=== PATIENT | female | born 1955 | race Caucasian/White ===

== ENCOUNTER 2017-08-09 16:18 | Inpatient (IN) ==
[2017-08-09] MEDS ORDERED: ONDANSETRON 4 MG/2 ML VIAL IV PRN ×2 (17:54→19:43)
[2017-08-09] MEDS ORDERED: MAGNESIUM HYDROXIDE SUSP 30 ML UDCUP PO PRN (17:54)
[2017-08-09] MEDS ORDERED: TEMAZEPAM 15 MG CAPSULE PO PRN (17:54)
[2017-08-09 18:38] LABS: Basophils % 0.5 % (0.0-0.8); Hematocrit 34.8 VOL% (35.7-47.0); Immature Granulocytes % 0.6 %; Immature Granulocytes Absolute 0.05 #; Lymphocytes # 0.7 10*3/uL (1.4-4.0); Lymphocytes % 8.3 % (21.3-54.2); Mean Corpuscular HGB Conc 31.6 GM/DL (32-36); Mean Corpuscular Hemoglobin 29 PG (27-34); Mean Corpuscular Volume 92.3 FL (87-102); Mean Platelet Volume 10.9 FL (9.6-12.0); Monocytes # 0.3 10*3/uL (0.11-0.8); Monocytes % 3.2 % (1.7-12.7); Neutrophils # 7.7 10*3/uL (1.4-7.4); Neutrophils % 87.4 % (38.7-73.9); Platelet Count 213 T/CUMM (130-400); Red Blood Count 3.77 MC/CUMM (3.8-5.5); White Blood Count 8.8 T/CUMM (4-12)
[2017-08-09 18:56] LABS: INR 0.9
[2017-08-09 19:07] LABS: Albumin 3.8 G/DL (3.4-5.0); Bilirubin,Total 0.4 MG/DL (0.2-1.0); Potassium 4.6 MMOL/L (3.5-5.1)
[2017-08-09] MEDS ORDERED: HYDROmorphone 2 MG/1 ML VIAL IV PRN (19:43)
[2017-08-09] MEDS ORDERED: OLANZAPINE 10 MG PO SCH (21:00)
[2017-08-09] MEDS: MORPHINE 2 MG/1 ML SYRINGE IV PRN (21:15)
[2017-08-09] MEDS: LACTATED RINGERS 1,000 ML IV SCH (21:24)
[2017-08-09] MEDS: carBAMazepine 200 MG TABLET PO SCH (21:51)
[2017-08-09] MEDS: SIMVASTATIN 20 MG TABLET PO SCH (22:00)
[2017-08-10] MEDS: MORPHINE 2 MG/1 ML SYRINGE IV PRN (05:49)
[2017-08-10] MEDS ORDERED: ceFAZolin 1,000 MG in SYRINGE 1 EACH IV ONE (06:00)
[2017-08-10] MEDS: LEVOTHYROXINE 25 MCG TABLET PO SCH (07:52)
[2017-08-10] MEDS ORDERED: TRANEXAMIC ACID 1,000 MG/10 ML VIAL IV ONE (08:59)
[2017-08-10] MEDS ORDERED: FUROSEMIDE 80 MG TABLET PO SCH (09:00)
[2017-08-10] MEDS ORDERED: PROMETHAZINE 25 MG/1 ML VIAL IM PRN (09:49)
[2017-08-10] MEDS ORDERED: diphenhydrAMINE CAP 25 MG CAPSULE PO PRN (09:49)
[2017-08-10] MEDS ORDERED: LACTULOSE 20 GM/30 ML UDCUP PO PRN (09:49)
[2017-08-10] MEDS ORDERED: BISACODYL 10 MG SUPP RECTAL PRN (09:49)
[2017-08-10] MEDS ORDERED: MAGNESIUM HYDROXIDE SUSP 30 ML UDCUP PO PRN (09:49)
[2017-08-10 10:08] LABS: Apearance,Urine CLEAR (Clear); Bacteria,Urine Occasional /HPF (Few); Bilirubin,Urine Negative (Negative); Blood, Urine Moderate mg/dL (Negative); Glucose,Urine (UA) Negative (Negative); Ketones,Urine Negative (Negative); Mucus,Urine Occasional /LPF (Occasional); Nitrite,Urine Negative (Negative); Protein,Urine 100 MG/DL; RBC,Urine <1 /HPF (0-4); Urine Color Yellow (Yellow); Urine Specific Gravity 1.006 (1.001-1.035); Urine Urobilinogen < 2.0 EU/DL (0.2-1.0); WBC,Urine <1 /HPF (0-6)
[2017-08-10] MEDS ORDERED: PROPOFOL 200 MG/20 ML VIAL IV ONE (10:27)
[2017-08-10] MEDS ORDERED: MIDAZOLAM 2 MG/2 ML VIAL ONE (10:28)
[2017-08-10] MEDS ORDERED: fentaNYL 100 MCG/2 ML VIAL ONE (10:28)
[2017-08-10] MEDS ORDERED: SEVOFLURANE 1 UNIT/15 MINUTE INH ONE (10:28)
[2017-08-10] MEDS ORDERED: ePHEDrine 50 MG/ML AMP ONE (10:28)
[2017-08-10] MEDS ORDERED: ROCURONIUM 100 MG/10 ML VIAL IV ONE (10:29)
[2017-08-10] MEDS ORDERED: SODIUM CHLORIDE 0.9% 1,000 ML IV ONE (10:29)
[2017-08-10] MEDS ORDERED: NEOSTIGMINE 10 MG/10 ML VIAL ONE (10:29)
[2017-08-10] MEDS ORDERED: ONDANSETRON 4 MG/2 ML VIAL ONE ×2 (10:29)
[2017-08-10] MEDS ORDERED: GLYCOPYRROLATE 0.4 MG/2 ML VIAL ONE (10:29)
[2017-08-10] MEDS ORDERED: ONDANSETRON 4 MG/2 ML VIAL IV PRN (10:30)
[2017-08-10] MEDS ORDERED: HYDROmorphone 2 MG/1 ML VIAL IV PRN (10:30)
[2017-08-10] MEDS: FUROSEMIDE 40 MG TABLET PO SCH (11:12)
[2017-08-10] MEDS: POLYETHYLENE GLYCOL POWDER 17 GM PACK PO SCH (11:12)
[2017-08-10] MEDS: amLODIPine 10 MG TABLET PO SCH (11:12)
[2017-08-10] MEDS: carBAMazepine 200 MG TABLET PO SCH ×4 (11:13→21:03)
[2017-08-10] MEDS: METOPROLOL SUCCINATE XL 50 MG TABLET PO SCH (11:13)
[2017-08-10] MEDS: ceFAZolin 1,000 MG in SYRINGE 1 EACH IV SCH ×2 (13:53→21:04)
[2017-08-10] MEDS: FONDAPARINUX 2.5 MG/0.5 ML SYRINGE SUBCUT SCH (21:03)
[2017-08-10] MEDS: DOCUSATE SODIUM 100 MG CAPSULE PO SCH (21:03)
[2017-08-10] MEDS: SIMVASTATIN 20 MG TABLET PO SCH (21:03)
[2017-08-10] MEDS: LACTATED RINGERS 1,000 ML IV SCH (21:08)
[2017-08-11] MEDS: LEVOTHYROXINE 25 MCG TABLET PO SCH (06:00)
[2017-08-11 07:15] LABS: Basophils % 0.4 % (0.0-0.8); Eosinophils % 0.1 % (0.00-10.9); Hematocrit 27.1 VOL% (35.7-47.0); Immature Granulocytes % 0.5 %; Immature Granulocytes Absolute 0.04 #; Lymphocytes # 0.9 10*3/uL (1.4-4.0); Lymphocytes % 11.7 % (21.3-54.2); Mean Corpuscular Hemoglobin 30 PG (27-34); Mean Corpuscular Volume 95.1 FL (87-102); Mean Platelet Volume 11.1 FL (9.6-12.0); Monocytes % 12.8 % (1.7-12.7); Neutrophils # 5.8 10*3/uL (1.4-7.4); Neutrophils % 74.5 % (38.7-73.9); Red Cell Distribution Width 14.2 % (9.3-17.3); White Blood Count 7.8 T/CUMM (4-12)
[2017-08-11 07:19] LABS: Hemoglobin 8.4 GM/DL (12.0-16.0); Platelet Count 166 T/CUMM (130-400); Red Blood Count 2.85 MC/CUMM (3.8-5.5)
[2017-08-11 07:40] LABS: Calcium 8.2 MG/DL (8.5-10.1); Osmolality,Calculated 313.6 MOS/KG (273-304); Potassium 3.9 MMOL/L (3.5-5.1)
[2017-08-11] MEDS: FUROSEMIDE 40 MG TABLET PO SCH (09:21)
[2017-08-11] MEDS: DOCUSATE SODIUM 100 MG CAPSULE PO SCH ×2 (09:21→21:25)
[2017-08-11] MEDS: carBAMazepine 200 MG TABLET PO SCH ×4 (09:21→21:24)
[2017-08-11] MEDS: METOPROLOL SUCCINATE XL 50 MG TABLET PO SCH (09:21)
[2017-08-11] MEDS: amLODIPine 10 MG TABLET PO SCH (09:21)
[2017-08-11] MEDS: POLYETHYLENE GLYCOL POWDER 17 GM PACK PO SCH (09:27)
[2017-08-11] MEDS: SODIUM CHLORIDE 0.9% 1,000 ML IV SCH ×2 (11:01→21:24)
[2017-08-11] MEDS: TEMAZEPAM 7.5 MG CAPSULE PO PRN (21:24)
[2017-08-11] MEDS: FONDAPARINUX 2.5 MG/0.5 ML SYRINGE SUBCUT SCH (21:24)
[2017-08-11] MEDS: SIMVASTATIN 20 MG TABLET PO SCH (21:25)
[2017-08-12] MEDS: LEVOTHYROXINE 25 MCG TABLET PO SCH (06:07)
[2017-08-12 06:28] LABS: Basophils % 0.4 % (0.0-0.8); Eosinophils % 0.5 % (0.00-10.9); Hematocrit 27.4 VOL% (35.7-47.0); Hemoglobin 8.5 GM/DL (12.0-16.0); Immature Granulocytes % 0.6 %; Immature Granulocytes Absolute 0.05 #; Lymphocytes # 0.9 10*3/uL (1.4-4.0); Lymphocytes % 11.2 % (21.3-54.2); Mean Corpuscular Hemoglobin 29 PG (27-34); Mean Corpuscular Volume 93.5 FL (87-102); Mean Platelet Volume 10.9 FL (9.6-12.0); Monocytes # 0.9 10*3/uL (0.11-0.8); Monocytes % 10.6 % (1.7-12.7); Neutrophils # 6.5 10*3/uL (1.4-7.4); Neutrophils % 76.7 % (38.7-73.9); Platelet Count 165 T/CUMM (130-400); Red Blood Count 2.93 MC/CUMM (3.8-5.5); White Blood Count 8.4 T/CUMM (4-12)
[2017-08-12 06:57] LABS: Calcium 7.7 MG/DL (8.5-10.1); Osmolality,Calculated 315.3 MOS/KG (273-304); Potassium 3.9 MMOL/L (3.5-5.1)
[2017-08-12] MEDS: amLODIPine 10 MG TABLET PO SCH (08:37)
[2017-08-12] MEDS: carBAMazepine 200 MG TABLET PO SCH ×4 (08:37→21:16)
[2017-08-12] MEDS: DOCUSATE SODIUM 100 MG CAPSULE PO SCH ×2 (08:37→21:16)
[2017-08-12] MEDS: MAGNESIUM HYDROXIDE SUSP 30 ML UDCUP PO SCH ×2 (08:37→21:15)
[2017-08-12] MEDS: METOPROLOL SUCCINATE XL 50 MG TABLET PO SCH (08:37)
[2017-08-12] MEDS: POLYETHYLENE GLYCOL POWDER 17 GM PACK PO SCH (08:37)
[2017-08-12] MEDS: cloNIDine 0.1 MG TABLET PO SCH ×2 (15:37→21:15)
[2017-08-12] MEDS: SODIUM CHLORIDE 0.9% 1,000 ML IV SCH (17:09)
[2017-08-12] MEDS: FONDAPARINUX 2.5 MG/0.5 ML SYRINGE SUBCUT SCH (21:15)
[2017-08-12] MEDS: TEMAZEPAM 7.5 MG CAPSULE PO PRN (21:16)
[2017-08-12] MEDS: SIMVASTATIN 20 MG TABLET PO SCH (21:16)
[2017-08-13] MEDS: SODIUM CHLORIDE 0.9% 1,000 ML IV SCH ×4 (02:18→15:38)
[2017-08-13 03:29] LABS: Basophils % 0.2 % (0.0-0.8); Eosinophils % 0.5 % (0.00-10.9); Hematocrit 27.1 VOL% (35.7-47.0); Hemoglobin 8.2 GM/DL (12.0-16.0); Immature Granulocytes % 0.5 %; Immature Granulocytes Absolute 0.04 #; Lymphocytes # 1.2 10*3/uL (1.4-4.0); Lymphocytes % 15.2 % (21.3-54.2); Mean Corpuscular HGB Conc 30.3 GM/DL (32-36); Mean Corpuscular Hemoglobin 30 PG (27-34); Mean Corpuscular Volume 97.5 FL (87-102); Mean Platelet Volume 11.2 FL (9.6-12.0); Monocytes # 0.9 10*3/uL (0.11-0.8); Monocytes % 11.7 % (1.7-12.7); Neutrophils # 5.8 10*3/uL (1.4-7.4); Neutrophils % 71.9 % (38.7-73.9); Platelet Count 167 T/CUMM (130-400); Red Blood Count 2.78 MC/CUMM (3.8-5.5); Red Cell Distribution Width 13.8 % (9.3-17.3); White Blood Count 8.1 T/CUMM (4-12)
[2017-08-13 04:00] LABS: Calcium 7.2 MG/DL (8.5-10.1); Osmolality,Calculated 315.1 MOS/KG (273-304)
[2017-08-13] MEDS: LEVOTHYROXINE 25 MCG TABLET PO SCH (06:29)
[2017-08-13] MEDS: cloNIDine 0.1 MG TABLET PO SCH (09:31)
[2017-08-13] MEDS: POLYETHYLENE GLYCOL POWDER 17 GM PACK PO SCH (09:31)
[2017-08-13] MEDS: DOCUSATE SODIUM 100 MG CAPSULE PO SCH ×2 (09:31→20:34)
[2017-08-13] MEDS: MAGNESIUM HYDROXIDE SUSP 30 ML UDCUP PO SCH ×2 (09:31→20:35)
[2017-08-13] MEDS: METOPROLOL SUCCINATE XL 50 MG TABLET PO SCH (09:31)
[2017-08-13] MEDS: amLODIPine 10 MG TABLET PO SCH (09:31)
[2017-08-13] MEDS: carBAMazepine 200 MG TABLET PO SCH ×4 (09:33→20:34)
[2017-08-13] MEDS: SIMVASTATIN 20 MG TABLET PO SCH (20:34)
[2017-08-13] MEDS: FONDAPARINUX 2.5 MG/0.5 ML SYRINGE SUBCUT SCH (20:35)
[2017-08-14] MEDS: SODIUM CHLORIDE 0.9% 1,000 ML IV SCH (02:33)
[2017-08-14] MEDS: LEVOTHYROXINE 25 MCG TABLET PO SCH (06:02)
[2017-08-14] MEDS: MAGNESIUM HYDROXIDE SUSP 30 ML UDCUP PO SCH ×2 (08:00→21:04)
[2017-08-14] MEDS: carBAMazepine 200 MG TABLET PO SCH ×4 (08:00→21:04)
[2017-08-14] MEDS: METOPROLOL SUCCINATE XL 50 MG TABLET PO SCH (08:00)
[2017-08-14] MEDS: POLYETHYLENE GLYCOL POWDER 17 GM PACK PO SCH (08:00)
[2017-08-14] MEDS: DOCUSATE SODIUM 100 MG CAPSULE PO SCH ×2 (08:00→21:04)
[2017-08-14] MEDS: amLODIPine 10 MG TABLET PO SCH (08:00)
[2017-08-14] MEDS: ENOXAPARIN 30 MG/0.3 ML SYRINGE SUBCUT SCH (21:04)
[2017-08-14] MEDS: SIMVASTATIN 20 MG TABLET PO SCH (21:04)
[2017-08-15 04:53] LABS: Calcium 7.6 MG/DL (8.5-10.1); Osmolality,Calculated 309.6 MOS/KG (273-304); Potassium 4.2 MMOL/L (3.5-5.1)
[2017-08-15] MEDS: LEVOTHYROXINE 25 MCG TABLET PO SCH (06:03)
[2017-08-15] MEDS: carBAMazepine 200 MG TABLET PO SCH ×4 (09:27→20:12)
[2017-08-15] MEDS: POLYETHYLENE GLYCOL POWDER 17 GM PACK PO SCH (09:27)
[2017-08-15] MEDS: amLODIPine 10 MG TABLET PO SCH (09:27)
[2017-08-15] MEDS: METOPROLOL SUCCINATE XL 50 MG TABLET PO SCH (09:28)
[2017-08-15] MEDS: DOCUSATE SODIUM 100 MG CAPSULE PO SCH ×2 (09:28→20:10)
[2017-08-15] MEDS: MAGNESIUM HYDROXIDE SUSP 30 ML UDCUP PO SCH ×2 (09:29→20:10)
[2017-08-15] MEDS: ENOXAPARIN 30 MG/0.3 ML SYRINGE SUBCUT SCH (20:11)
[2017-08-15] MEDS: SIMVASTATIN 20 MG TABLET PO SCH (20:12)
[2017-08-16] MEDS: LEVOTHYROXINE 25 MCG TABLET PO SCH (06:46)
[2017-08-16] MEDS: MAGNESIUM HYDROXIDE SUSP 30 ML UDCUP PO SCH ×2 (09:34→21:39)
[2017-08-16] MEDS: METOPROLOL SUCCINATE XL 50 MG TABLET PO SCH (09:35)
[2017-08-16] MEDS: carBAMazepine 200 MG TABLET PO SCH ×4 (09:35→21:38)
[2017-08-16] MEDS: POLYETHYLENE GLYCOL POWDER 17 GM PACK PO SCH (09:35)
[2017-08-16] MEDS: amLODIPine 10 MG TABLET PO SCH (09:35)
[2017-08-16] MEDS: DOCUSATE SODIUM 100 MG CAPSULE PO SCH ×2 (09:35→21:38)
[2017-08-16] MEDS ORDERED: guaiFENesin 200 MG/10 ML UDCUP PO PRN (10:10)
[2017-08-16] MEDS ORDERED: BENZONATATE 100 MG CAPSULE PO PRN (12:09)
[2017-08-16] MEDS: ENOXAPARIN 30 MG/0.3 ML SYRINGE SUBCUT SCH (21:38)
[2017-08-16] MEDS: SIMVASTATIN 20 MG TABLET PO SCH (21:38)
[2017-08-17] MEDS: LEVOTHYROXINE 25 MCG TABLET PO SCH (06:20)
[2017-08-17] MEDS: POLYETHYLENE GLYCOL POWDER 17 GM PACK PO SCH (09:02)
[2017-08-17] MEDS: MAGNESIUM HYDROXIDE SUSP 30 ML UDCUP PO SCH (09:02)
[2017-08-17] MEDS: DOCUSATE SODIUM 100 MG CAPSULE PO SCH (09:06)
[2017-08-17] MEDS: amLODIPine 10 MG TABLET PO SCH (09:07)
[2017-08-17] MEDS: METOPROLOL SUCCINATE XL 50 MG TABLET PO SCH (09:07)
[2017-08-17] MEDS: carBAMazepine 200 MG TABLET PO SCH (09:07)
[2017-08-17 10:58] VITALS: BP 189/84
[2017-08-17] MEDS ORDERED: hydrALAZINE 25 MG TABLET PO SCH (13:00)
== END 2017-08-17 14:15 | DRG 467 ==
LOC: N.ED 16:18 → N.EDINP 17:54 → N.3E 19:46
PROVIDERS: ADMIT Orthopaedic Surgery; ATTEND Orthopaedic Surgery

== ENCOUNTER 2018-04-29 08:34 | Inpatient (IN) ==
[2018-04-29] MEDS ORDERED: LEVOFLOXACIN INJ 500 MG in PREMIX 1 EACH IV STA (08:47)
[2018-04-29] MEDS ORDERED: SODIUM CHLORIDE 0.9% 500 ML IV STA (08:53)
[2018-04-29 09:26] LABS: Basophils % 0.1 % (0.0-0.8); Hemoglobin 8.1 GM/DL (12.0-16.0); Immature Granulocytes % 1.2 %; Lymphocytes # 0.2 10*3/uL (1.4-4.0); Lymphocytes % 2.5 % (21.3-54.2); Mean Corpuscular Hemoglobin 29 PG (27-34); Mean Corpuscular Volume 96.8 FL (87-102); Mean Platelet Volume 11.8 FL (9.6-12.0); Monocytes # 0.7 10*3/uL (0.11-0.8); Monocytes % 8.5 % (1.7-12.7); Neutrophils # 7.3 10*3/uL (1.4-7.4); Neutrophils % 87.7 % (38.7-73.9); Platelet Count 144 T/CUMM (130-400); Red Blood Count 2.79 MC/CUMM (3.8-5.5); Red Cell Distribution Width 14.4 % (9.3-17.3); White Blood Count 8.3 T/CUMM (4-12)
[2018-04-29 09:29] LABS: Apearance,Urine CLOUDY (Clear); Bilirubin,Urine Negative (Negative); Blood, Urine Moderate mg/dL (Negative); Glucose,Urine (UA) Negative (Negative); Ketones,Urine Negative (Negative); Nitrite,Urine Negative (Negative); Protein,Urine 100 MG/DL; RBC,Urine 17 /HPF (0-4); Urine Color Yellow (Yellow); Urine Specific Gravity 1.005 (1.001-1.035); Urine Urobilinogen < 2.0 EU/DL (0.2-1.0); WBC,Urine 79 /HPF (0-6)
[2018-04-29 09:53] LABS: Band Neutrophils 5 % (0-10); Hypochromasia 1+; Lymphocytes 3 % (20-55); Platelet Estimate Normal; Segmented Neutrophils 83 % (50-85); Total Cells Counted 100
[2018-04-29 10:03] LABS: Albumin 2.4 G/DL (3.4-5.0); Bilirubin,Total 0.4 MG/DL (0.2-1.0); Calcium 7.6 MG/DL (8.5-10.1); Osmolality,Calculated 313.3 MOS/KG (273-304); Potassium 4.2 MMOL/L (3.5-5.1); Total Protein 5.7 G/DL (6.4-8.3)
[2018-04-29 10:04] LABS: Lactic Acid 0.5 MMOL/L (0.4-2.0)
[2018-04-29] MEDS ORDERED: ALBUTEROL/IPRATROPIUM 3 ML NEB RESP TX STA (12:35)
[2018-04-29] MEDS ORDERED: DOCUSATE SODIUM 100 MG CAPSULE PO PRN (12:49)
[2018-04-29] MEDS ORDERED: diphenhydrAMINE CAP 25 MG CAPSULE PO PRN (12:49)
[2018-04-29] MEDS ORDERED: MORPHINE 4 MG/1 ML VIAL IV PRN (12:49)
[2018-04-29] MEDS ORDERED: ONDANSETRON 4 MG/2 ML VIAL IV PRN (12:49)
[2018-04-29] MEDS ORDERED: ALBUTEROL 2.5 MG/3 ML NEB RESP TX PRN (12:55)
[2018-04-29] MEDS ORDERED: VANCOMYCIN INJ 750 MG in SODIUM CHLORIDE 0.9% 250 ML IV SCH (13:00)
[2018-04-29] MEDS ORDERED: SODIUM CHLORIDE 0.9% 1,000 ML IV SCH (13:00)
[2018-04-29] MEDS ORDERED: LEVOFLOXACIN INJ 750 MG in PREMIX 1 EACH IV SCH (13:00)
[2018-04-29] MEDS ORDERED: carBAMazepine 200 MG TABLET PO SCH (13:00)
[2018-04-29] MEDS: RACEPINEPHRINE 0.5 ML NEB RESP TX SCH ×2 (13:07→19:42)
[2018-04-29] MEDS ORDERED: OSELTAMIVIR 30 MG CAPSULE PO SCH (14:00)
[2018-04-29] MEDS ORDERED: SODIUM BICARB INJ 100 MEQ in DEXTROSE 5% 900 ML IV SCH (14:00)
[2018-04-29 14:20] LABS: Hepatitis A Ab IgM Quant 0.18 Index; Hepatitis A Ab IgM Result Negative (Negative); Hepatitis B Core IgM Quant 0.05 Index; Hepatitis B Core IgM Result Negative (Negative); Hepatitis B Surface Ag Quant < 0.10 Index; Hepatitis B Surface Ag Result Negative (Negative); Hepatitis C Virus Ab Quant 0.09 Index; Hepatitis C Virus Ab Result Negative (Negative)
[2018-04-29] MEDS: PIPERACILLIN/TAZOBACTAM 3,375 MG in SODIUM CHLORIDE 0.9% 100 ML IV SCH (15:00)
[2018-04-29] MEDS: TIMOLOL 0.5% OPH SOLN 5 ML BOTTLE BOTH EYES SCH (15:13)
[2018-04-29] MEDS: PANTOPRAZOLE 40 MG TABLET PO SCH (15:13)
[2018-04-29] MEDS: CARVEDILOL 6.25 MG TABLET PO SCH ×2 (15:14→20:37)
[2018-04-29] MEDS: amLODIPine 5 MG TABLET PO SCH (15:14)
[2018-04-29] MEDS: BENZONATATE 100 MG CAPSULE PO SCH ×2 (15:14→20:37)
[2018-04-29 15:45] LABS: ABG Base Excess -10.2 MMOL/L (-2.5-2.5); ABG HCO3 16.2 MMOL/L (20-26); ABG Oxygen Saturation 98.6 % (95-100); ABG PCO2 30.3 MM HG (35-48); ABG PH 7.308 (7.35-7.45); ABG TCO2 14.4 MMOL/L (23-27)
[2018-04-29] MEDS ORDERED: SODIUM BICARBONATE 50 MEQ/50 ML SYRINGE IV ONE (15:45)
[2018-04-29 20:15] LABS: INR 1.1; PT Patient Result 11.1 SECS; Partial Thromboplastin Time 27.9 SECS (0-40)
[2018-04-29] MEDS: SIMVASTATIN 20 MG TABLET PO SCH (20:37)
[2018-04-29] MEDS: HEPARIN 5,000 UNIT/1 ML VIAL SUBCUT SCH (20:37)
[2018-04-29] MEDS ORDERED: ENOXAPARIN 30 MG/0.3 ML SYRINGE SUBCUT SCH (21:00)
[2018-04-29] MEDS ORDERED: METOPROLOL SUCCINATE XL 50 MG TABLET PO SCH (21:00)
[2018-04-29] MEDS: LATANOPROST 0.005% OPH SOLN 2.5 ML BOTTLE BOTH EYES SCH (21:14)
[2018-04-30] MEDS: RACEPINEPHRINE 0.5 ML NEB RESP TX SCH ×2 (01:17→07:49)
[2018-04-30] MEDS: PIPERACILLIN/TAZOBACTAM 3,375 MG in SODIUM CHLORIDE 0.9% 100 ML IV SCH ×2 (01:45→15:42)
[2018-04-30 03:51] LABS: Basophils % 0.2 % (0.0-0.8); Eosinophils % 0.2 % (0.00-10.9); Hematocrit 23.3 VOL% (35.7-47.0); Hemoglobin 6.8 GM/DL (12.0-16.0); Immature Granulocytes % 2.6 %; Immature Granulocytes Absolute 0.26 #; Lymphocytes # 0.6 10*3/uL (1.4-4.0); Lymphocytes % 6.1 % (21.3-54.2); Mean Corpuscular HGB Conc 29.2 GM/DL (32-36); Mean Corpuscular Hemoglobin 29 PG (27-34); Mean Corpuscular Volume 98.7 FL (87-102); Mean Platelet Volume 11.7 FL (9.6-12.0); Monocytes # 1.2 10*3/uL (0.11-0.8); Neutrophils % 78.9 % (38.7-73.9); Platelet Count 145 T/CUMM (130-400); Red Blood Count 2.36 MC/CUMM (3.8-5.5); Red Cell Distribution Width 14.6 % (9.3-17.3); White Blood Count 10.2 T/CUMM (4-12)
[2018-04-30 04:43] LABS: Alanine Aminotransferase < 9 U/L (13-56); Alkaline Phosphatase 67 U/L (45-117); Aspartate Amino Transferase 8 U/L (0-37); Blood Urea Nitrogen 102 MG/DL (7-18); Calcium 7.7 MG/DL (8.5-10.1); Cholesterol 110 MG/DL (50-200); Glucose 108 MG/DL (74-106); HDL Cholesterol 21 MG/DL (40-60); Potassium 4.4 MMOL/L (3.5-5.1); Risk Ratio 5.24; Sodium 143 MMOL/L (136-145); Total Protein 4.9 G/DL (6.4-8.3); Triglycerides 143 MG/DL (2-150); VLDL CHOLESTEROL 28.6 MG/DL
[2018-04-30] MEDS ORDERED: SODIUM CHLORIDE 0.9% 1,000 ML IV PRN (05:30)
[2018-04-30 06:01] LABS: Hematocrit 24.7 VOL% (35.7-47.0); Hemoglobin 7.3 GM/DL (12.0-16.0)
[2018-04-30] MEDS: LEVOTHYROXINE 25 MCG TABLET PO SCH (06:18)
[2018-04-30] MEDS: PANTOPRAZOLE 40 MG TABLET PO SCH (10:38)
[2018-04-30] MEDS: amLODIPine 5 MG TABLET PO SCH ×2 (10:38→20:48)
[2018-04-30] MEDS: CARVEDILOL 6.25 MG TABLET PO SCH ×2 (10:38→20:47)
[2018-04-30] MEDS: HEPARIN 5,000 UNIT/1 ML VIAL SUBCUT SCH ×2 (10:38→20:48)
[2018-04-30] MEDS: TIMOLOL 0.5% OPH SOLN 5 ML BOTTLE BOTH EYES SCH (10:39)
[2018-04-30] MEDS: BENZONATATE 100 MG CAPSULE PO SCH ×3 (10:39→20:48)
[2018-04-30] MEDS: ALBUTEROL/IPRATROPIUM 3 ML NEB RESP TX SCH ×4 (11:20→23:54)
[2018-04-30] MEDS ORDERED: SODIUM BICARBONATE 50 MEQ/50 ML SYRINGE IV ONE (11:51)
[2018-04-30] MEDS ORDERED: GLUCAGON 1 MG VIAL IM PRN (14:29)
[2018-04-30] MEDS ORDERED: DEXTROSE 50% 25 GM/50 ML VIAL IV PRN (14:29)
[2018-04-30] MEDS: CITRIC ACID/SODIUM CITRATE 30 ML UDCUP PO SCH ×2 (15:46→20:48)
[2018-04-30] MEDS: INSULIN LISPRO 100 UNIT/ML SUBCUT SCH ×2 (17:32→21:27)
[2018-04-30] MEDS: LATANOPROST 0.005% OPH SOLN 2.5 ML BOTTLE BOTH EYES SCH (20:48)
[2018-04-30] MEDS: SIMVASTATIN 20 MG TABLET PO SCH (20:48)
[2018-05-01] MEDS: PIPERACILLIN/TAZOBACTAM 3,375 MG in SODIUM CHLORIDE 0.9% 100 ML IV SCH ×2 (02:16→14:59)
[2018-05-01] MEDS: ALBUTEROL/IPRATROPIUM 3 ML NEB RESP TX SCH ×6 (03:47→22:55)
[2018-05-01] MEDS: LEVOTHYROXINE 25 MCG TABLET PO SCH (06:09)
[2018-05-01] MEDS: INSULIN LISPRO 100 UNIT/ML SUBCUT SCH ×4 (08:31→21:01)
[2018-05-01] MEDS: CITRIC ACID/SODIUM CITRATE 30 ML UDCUP PO SCH ×3 (09:21→21:00)
[2018-05-01] MEDS: CARVEDILOL 6.25 MG TABLET PO SCH ×2 (09:21→21:01)
[2018-05-01] MEDS: BENZONATATE 100 MG CAPSULE PO SCH ×3 (09:22→21:00)
[2018-05-01] MEDS: HEPARIN 5,000 UNIT/1 ML VIAL SUBCUT SCH ×2 (09:22→21:00)
[2018-05-01] MEDS: amLODIPine 5 MG TABLET PO SCH ×2 (09:22→21:00)
[2018-05-01] MEDS: TIMOLOL 0.5% OPH SOLN 5 ML BOTTLE BOTH EYES SCH (09:22)
[2018-05-01] MEDS: PANTOPRAZOLE 40 MG TABLET PO SCH (09:22)
[2018-05-01] MEDS: LEVOFLOXACIN INJ 250 MG in PREMIX 1 EACH IV SCH (13:57)
[2018-05-01] MEDS: ACETAMINOPHEN 325 MG TABLET PO PRN (15:06)
[2018-05-01] MEDS ORDERED: SODIUM CHLORIDE 0.9% 1,000 ML IV PRN (15:49)
[2018-05-01] MEDS: LATANOPROST 0.005% OPH SOLN 2.5 ML BOTTLE BOTH EYES SCH (21:01)
[2018-05-01] MEDS: SIMVASTATIN 20 MG TABLET PO SCH (21:01)
[2018-05-02] MEDS: ALBUTEROL/IPRATROPIUM 3 ML NEB RESP TX SCH ×5 (03:05→19:00)
[2018-05-02 06:03] LABS: Basophils % 0.3 % (0.0-0.8); Eosinophils # 0.1 10*3/uL (0.0-0.87); Eosinophils % 1.2 % (0.00-10.9); Hematocrit 33.1 VOL% (35.7-47.0); Immature Granulocytes % 4.2 %; Immature Granulocytes Absolute 0.42 #; Lymphocytes # 0.6 10*3/uL (1.4-4.0); Lymphocytes % 6.5 % (21.3-54.2); Mean Corpuscular HGB Conc 31.1 GM/DL (32-36); Mean Corpuscular Hemoglobin 29 PG (27-34); Monocytes # 0.8 10*3/uL (0.11-0.8); Monocytes % 8.1 % (1.7-12.7); Neutrophils # 7.9 10*3/uL (1.4-7.4); Neutrophils % 79.7 % (38.7-73.9); Red Cell Distribution Width 15.2 % (9.3-17.3); White Blood Count 9.9 T/CUMM (4-12)
[2018-05-02] MEDS: LEVOTHYROXINE 25 MCG TABLET PO SCH (06:04)
[2018-05-02 06:05] LABS: Hemoglobin 10.3 GM/DL (12.0-16.0); Red Blood Count 3.52 MC/CUMM (3.8-5.5)
[2018-05-02 06:06] LABS: Platelet Count 185 T/CUMM (130-400)
[2018-05-02 06:21] LABS: Calcium 7.9 MG/DL (8.5-10.1); Potassium 4.5 MMOL/L (3.5-5.1)
[2018-05-02 06:26] LABS: Band Neutrophils 2 % (0-10); Lymphocytes 3 % (20-55); Segmented Neutrophils 91 % (50-85); Total Cells Counted 100
[2018-05-02 06:28] LABS: Microcytosis 1+; Platelet Estimate Adequate
[2018-05-02] MEDS: INSULIN LISPRO 100 UNIT/ML SUBCUT SCH ×4 (07:45→21:09)
[2018-05-02] MEDS: CITRIC ACID/SODIUM CITRATE 30 ML UDCUP PO SCH ×3 (15:23→21:18)
[2018-05-02] MEDS: BENZONATATE 100 MG CAPSULE PO SCH ×3 (15:24→21:10)
[2018-05-02] MEDS: CARVEDILOL 6.25 MG TABLET PO SCH (15:33)
[2018-05-02] MEDS: amLODIPine 5 MG TABLET PO SCH (15:33)
[2018-05-02] MEDS: PRAZOSIN 1 MG CAPSULE PO SCH ×2 (16:00→21:10)
[2018-05-02] MEDS: PANTOPRAZOLE 40 MG TABLET PO SCH (16:00)
[2018-05-02] MEDS: HEPARIN 5,000 UNIT/1 ML VIAL SUBCUT SCH (16:01)
[2018-05-02 16:53] LABS: % Iron Saturation 15.6 % (18-50); Ferritin 225.3 ng/ml (8-252)
[2018-05-02] MEDS ORDERED: METOPROLOL TARTRATE 50 MG TABLET PO SCH (21:00)
[2018-05-02] MEDS: LATANOPROST 0.005% OPH SOLN 2.5 ML BOTTLE BOTH EYES SCH (21:08)
[2018-05-02] MEDS: SIMVASTATIN 20 MG TABLET PO SCH (21:10)
[2018-05-02] MEDS: TIMOLOL 0.5% OPH SOLN 5 ML BOTTLE BOTH EYES SCH (21:15)
[2018-05-03] MEDS: ALBUTEROL/IPRATROPIUM 3 ML NEB RESP TX SCH ×7 (00:40→23:00)
[2018-05-03] MEDS: HEPARIN 5,000 UNIT/1 ML VIAL SUBCUT SCH ×2 (04:32→20:50)
[2018-05-03 06:09] LABS: Basophils # 0.1 10*3/uL (0.0-0.2); Basophils % 0.6 % (0.0-0.8); Eosinophils # 0.1 10*3/uL (0.0-0.87); Eosinophils % 1.3 % (0.00-10.9); Hematocrit 33.7 VOL% (35.7-47.0); Hemoglobin 10.6 GM/DL (12.0-16.0); Immature Granulocytes % 6.5 %; Immature Granulocytes Absolute 0.63 #; Lymphocytes # 1.1 10*3/uL (1.4-4.0); Lymphocytes % 11.5 % (21.3-54.2); Mean Corpuscular HGB Conc 31.5 GM/DL (32-36); Mean Corpuscular Hemoglobin 29 PG (27-34); Mean Corpuscular Volume 92.8 FL (87-102); Mean Platelet Volume 10.7 FL (9.6-12.0); Monocytes # 1.1 10*3/uL (0.11-0.8); Monocytes % 10.8 % (1.7-12.7); Neutrophils # 6.7 10*3/uL (1.4-7.4); Neutrophils % 69.3 % (38.7-73.9); Platelet Count 197 T/CUMM (130-400); Red Blood Count 3.63 MC/CUMM (3.8-5.5); Red Cell Distribution Width 14.6 % (9.3-17.3); White Blood Count 9.7 T/CUMM (4-12)
[2018-05-03] MEDS: LEVOTHYROXINE 25 MCG TABLET PO SCH (06:36)
[2018-05-03 06:38] LABS: Band Neutrophils 2 % (0-10); Hypochromasia 1+; Lymphocytes 11 % (20-55); Myelocytes 1 %; Segmented Neutrophils 76 % (50-85); Total Cells Counted 100
[2018-05-03 06:39] LABS: Microcytosis 1+; Platelet Estimate Adequate
[2018-05-03] MEDS: INSULIN LISPRO 100 UNIT/ML SUBCUT SCH ×4 (07:59→22:20)
[2018-05-03] MEDS: CITRIC ACID/SODIUM CITRATE 30 ML UDCUP PO SCH ×3 (08:37→22:22)
[2018-05-03] MEDS: BENZONATATE 100 MG CAPSULE PO SCH ×3 (08:37→22:21)
[2018-05-03] MEDS: PANTOPRAZOLE 40 MG TABLET PO SCH (08:37)
[2018-05-03] MEDS: LOSARTAN 50 MG TABLET PO SCH (10:01)
[2018-05-03] MEDS: PRAZOSIN 1 MG CAPSULE PO SCH ×2 (10:03→22:21)
[2018-05-03] MEDS: TIMOLOL 0.5% OPH SOLN 5 ML BOTTLE BOTH EYES SCH (10:04)
[2018-05-03] MEDS: LEVOFLOXACIN INJ 250 MG in PREMIX 1 EACH IV SCH (13:30)
[2018-05-03] MEDS: METOPROLOL TARTRATE 50 MG TABLET PO SCH ×2 (13:41→22:22)
[2018-05-03] MEDS: POLYETHYLENE GLYCOL POWDER 17 GM PACK PO SCH (13:42)
[2018-05-03] MEDS ORDERED: HEPARIN 10,000 UNIT/10 ML VIAL IV PRN (17:26)
[2018-05-03] MEDS: SIMVASTATIN 20 MG TABLET PO SCH (22:22)
[2018-05-03] MEDS: LATANOPROST 0.005% OPH SOLN 2.5 ML BOTTLE BOTH EYES SCH (22:22)
[2018-05-04] MEDS: ALBUTEROL/IPRATROPIUM 3 ML NEB RESP TX SCH ×6 (03:00→23:43)
[2018-05-04] MEDS: HEPARIN 5,000 UNIT/1 ML VIAL SUBCUT SCH ×2 (04:20→16:20)
[2018-05-04 06:22] LABS: Basophils # 0.1 10*3/uL (0.0-0.2); Basophils % 0.4 % (0.0-0.8); Eosinophils # 0.1 10*3/uL (0.0-0.87); Eosinophils % 0.5 % (0.00-10.9); Hemoglobin 10.7 GM/DL (12.0-16.0); Immature Granulocytes % 4.3 %; Lymphocytes # 0.8 10*3/uL (1.4-4.0); Lymphocytes % 5.9 % (21.3-54.2); Mean Corpuscular HGB Conc 32.4 GM/DL (32-36); Mean Corpuscular Hemoglobin 30 PG (27-34); Mean Corpuscular Volume 91.4 FL (87-102); Mean Platelet Volume 10.5 FL (9.6-12.0); Monocytes # 1.1 10*3/uL (0.11-0.8); Monocytes % 7.8 % (1.7-12.7); Neutrophils # 11.4 10*3/uL (1.4-7.4); Neutrophils % 81.1 % (38.7-73.9); Platelet Count 195 T/CUMM (130-400); Red Blood Count 3.61 MC/CUMM (3.8-5.5); Red Cell Distribution Width 14.1 % (9.3-17.3); White Blood Count 14.1 T/CUMM (4-12)
[2018-05-04] MEDS ORDERED: ceFAZolin 1,000 MG in SYRINGE 1 EACH IV ONE (06:30)
[2018-05-04 06:46] LABS: Band Neutrophils 3 % (0-10); Eosinophils 1 % (0-10); Hypochromasia 1+; Lymphocytes 7 % (20-55); Microcytosis 1+; Ovalocytes Slight; Platelet Estimate Adequate; Segmented Neutrophils 80 % (50-85); Total Cells Counted 100
[2018-05-04] MEDS: METOPROLOL TARTRATE 50 MG TABLET PO SCH ×2 (07:58→21:51)
[2018-05-04] MEDS: PANTOPRAZOLE 40 MG TABLET PO SCH (07:58)
[2018-05-04] MEDS: INSULIN LISPRO 100 UNIT/ML SUBCUT SCH ×4 (07:58→21:52)
[2018-05-04] MEDS ORDERED: HEPARIN 5,000 UNIT/1 ML VIAL ONE ×2 (08:58→09:35)
[2018-05-04] MEDS ORDERED: BUPIVACAINE 0.25% /EPI 10 ML VIAL ONE (08:58)
[2018-05-04] MEDS ORDERED: LIDOCAINE 1%/EPI INJ 20 ML VIAL ONE (08:58)
[2018-05-04] MEDS ORDERED: PROPOFOL 200 MG/20 ML VIAL IV ONE (10:27)
[2018-05-04] MEDS ORDERED: fentaNYL 100 MCG/2 ML VIAL ONE (10:27)
[2018-05-04] MEDS ORDERED: SODIUM CHLORIDE 0.9% 100 ML IV ONE (10:28)
[2018-05-04] MEDS ORDERED: MIDAZOLAM 2 MG/2 ML VIAL ONE (10:28)
[2018-05-04] MEDS ORDERED: BISACODYL 5 MG TABLET PO ONE (15:23)
[2018-05-04] MEDS: LOSARTAN 50 MG TABLET PO SCH (16:17)
[2018-05-04] MEDS: PRAZOSIN 1 MG CAPSULE PO SCH ×2 (16:18→21:52)
[2018-05-04] MEDS: BENZONATATE 100 MG CAPSULE PO SCH ×3 (16:19→21:51)
[2018-05-04] MEDS: POLYETHYLENE GLYCOL POWDER 17 GM PACK PO SCH (16:20)
[2018-05-04] MEDS: TIMOLOL 0.5% OPH SOLN 5 ML BOTTLE BOTH EYES SCH (16:29)
[2018-05-04] MEDS: CITRIC ACID/SODIUM CITRATE 30 ML UDCUP PO SCH ×2 (16:33→21:53)
[2018-05-04] MEDS: LEVOTHYROXINE 25 MCG TABLET PO SCH (16:33)
[2018-05-04] MEDS: ACETAMINOPHEN 325 MG TABLET PO PRN (19:11)
[2018-05-04] MEDS: SIMVASTATIN 20 MG TABLET PO SCH (21:52)
[2018-05-04] MEDS: LATANOPROST 0.005% OPH SOLN 2.5 ML BOTTLE BOTH EYES SCH (21:53)
[2018-05-05] MEDS: HEPARIN 5,000 UNIT/1 ML VIAL SUBCUT SCH (03:39)
[2018-05-05] MEDS: ALBUTEROL/IPRATROPIUM 3 ML NEB RESP TX SCH ×4 (05:26→14:36)
[2018-05-05] MEDS: LEVOTHYROXINE 25 MCG TABLET PO SCH (06:40)
[2018-05-05] MEDS: INSULIN LISPRO 100 UNIT/ML SUBCUT SCH ×2 (08:53→14:59)
[2018-05-05] MEDS: CITRIC ACID/SODIUM CITRATE 30 ML UDCUP PO SCH ×2 (14:57→15:18)
[2018-05-05] MEDS: LOSARTAN 50 MG TABLET PO SCH (14:57)
[2018-05-05] MEDS: BENZONATATE 100 MG CAPSULE PO SCH ×2 (14:58→15:00)
[2018-05-05] MEDS: POLYETHYLENE GLYCOL POWDER 17 GM PACK PO SCH (14:58)
[2018-05-05] MEDS: PRAZOSIN 1 MG CAPSULE PO SCH (14:58)
[2018-05-05] MEDS: TIMOLOL 0.5% OPH SOLN 5 ML BOTTLE BOTH EYES SCH ×2 (14:59→15:00)
[2018-05-05] MEDS: METOPROLOL TARTRATE 50 MG TABLET PO SCH (15:00)
[2018-05-05] MEDS: PANTOPRAZOLE 40 MG TABLET PO SCH (15:00)
[2018-05-05] MEDS: LEVOFLOXACIN INJ 250 MG in PREMIX 1 EACH IV SCH (15:15)
[2018-05-05 15:31] VITALS: BP 109/82
== END 2018-05-05 16:05 | DRG 683 ==
LOC: EDBD → EDUNIT# → N.ED 08:34 → N.EDINP 12:49 → SUATTDRO 12:49 → N.CC 13:18 → N.3E 04-30 17:28
PROVIDERS: ADMIT Internal Medicine; ATTEND Internal Medicine

== ENCOUNTER 2018-06-02 09:54 | Inpatient (IN) ==
[2018-06-02] MEDS ORDERED: HYDROmorphone 2 MG/1 ML VIAL IV PRN (10:26)
[2018-06-02] MEDS ORDERED: ONDANSETRON 4 MG/2 ML VIAL IV PRN ×2 (10:26→11:49)
[2018-06-02 11:16] LABS: Basophils % 0.5 % (0.0-0.8); Eosinophils # 0.5 10*3/uL (0.0-0.87); Eosinophils % 7.5 % (0.00-10.9); Hematocrit 26.7 VOL% (35.7-47.0); Hemoglobin 8.1 GM/DL (12.0-16.0); Immature Granulocytes % 0.5 %; Immature Granulocytes Absolute 0.03 #; Lymphocytes % 16.3 % (21.3-54.2); Mean Corpuscular HGB Conc 30.3 GM/DL (32-36); Mean Corpuscular Hemoglobin 29 PG (27-34); Mean Corpuscular Volume 94.7 FL (87-102); Monocytes # 0.5 10*3/uL (0.11-0.8); Neutrophils # 4.3 10*3/uL (1.4-7.4); Neutrophils % 67.2 % (38.7-73.9); Platelet Count 171 T/CUMM (130-400); Red Blood Count 2.82 MC/CUMM (3.8-5.5); Red Cell Distribution Width 14.2 % (9.3-17.3); White Blood Count 6.4 T/CUMM (4-12)
[2018-06-02 11:25] LABS: PT Patient Result 10.5 SECS; Partial Thromboplastin Time 26.8 SECS (0-40)
[2018-06-02] MEDS ORDERED: CITRIC ACID/SODIUM CITRATE 30 ML UDCUP PO ONE (11:27)
[2018-06-02 11:40] LABS: Calcium 8.1 MG/DL (8.5-10.1); Osmolality,Calculated 286.5 MOS/KG (273-304); Potassium 5.1 MMOL/L (3.5-5.1)
[2018-06-02] MEDS ORDERED: CITRIC ACID/SODIUM CITRATE 30 ML UDCUP ONE (11:46)
[2018-06-02] MEDS ORDERED: DEXTROSE 50% 25 GM/50 ML VIAL IV PRN (11:49)
[2018-06-02] MEDS ORDERED: MORPHINE 4 MG/1 ML VIAL IV PRN ×2 (11:49→12:11)
[2018-06-02] MEDS ORDERED: MAGNESIUM HYDROXIDE SUSP 30 ML UDCUP PO PRN (11:49)
[2018-06-02] MEDS ORDERED: TEMAZEPAM 15 MG CAPSULE PO PRN (11:49)
[2018-06-02] MEDS ORDERED: GLUCAGON 1 MG VIAL IM PRN (11:49)
[2018-06-02] MEDS ORDERED: ALUMINUM/MAGNES/SIMETH MAX STR 30 ML UDCUP PO PRN (11:49)
[2018-06-02] MEDS ORDERED: SODIUM CHLORIDE 0.9% 1,000 ML IV PRN (15:35)
[2018-06-02] MEDS ORDERED: hydrALAZINE 20 MG/1 ML VIAL IV PRN (15:53)
[2018-06-02] MEDS: carBAMazepine 200 MG TABLET PO SCH ×3 (16:08→21:23)
[2018-06-02] MEDS ORDERED: HEPARIN 10,000 UNIT/10 ML VIAL IV PRN (17:13)
[2018-06-02] MEDS: SIMVASTATIN 20 MG TABLET PO SCH (21:23)
[2018-06-02] MEDS: PRAZOSIN 1 MG CAPSULE PO SCH (21:23)
[2018-06-02] MEDS: OLANZapine 5 MG TABLET PO SCH (21:23)
[2018-06-02] MEDS: METOPROLOL TARTRATE 50 MG TABLET PO SCH (21:24)
[2018-06-02] MEDS: LATANOPROST 0.005% OPH SOLN 2.5 ML BOTTLE BOTH EYES SCH (21:27)
[2018-06-03] MEDS: METOPROLOL TARTRATE 50 MG TABLET PO SCH ×3 (06:16→20:32)
[2018-06-03] MEDS: carBAMazepine 200 MG TABLET PO SCH ×5 (06:16→20:32)
[2018-06-03] MEDS: LEVOTHYROXINE 25 MCG TABLET PO SCH (06:17)
[2018-06-03] MEDS ORDERED: ceFAZolin 1,000 MG in SYRINGE 1 EACH IV ONE (07:00)
[2018-06-03] MEDS ORDERED: VANCOMYCIN INJ 1,000 MG in SODIUM CHLORIDE 0.9% 250 ML IV ONE (07:00)
[2018-06-03] MEDS ORDERED: TRANEXAMIC ACID 1,000 MG/10 ML VIAL ONE (07:57)
[2018-06-03] MEDS ORDERED: LACTULOSE 20 GM/30 ML UDCUP PO PRN (08:58)
[2018-06-03] MEDS ORDERED: BISACODYL 10 MG SUPP RECTAL PRN (08:58)
[2018-06-03] MEDS ORDERED: diphenhydrAMINE CAP 25 MG CAPSULE PO PRN (08:58)
[2018-06-03] MEDS ORDERED: TEMAZEPAM 7.5 MG CAPSULE PO PRN (08:58)
[2018-06-03] MEDS ORDERED: PROMETHAZINE 25 MG/1 ML VIAL IM PRN (08:58)
[2018-06-03] MEDS ORDERED: fentaNYL 100 MCG/2 ML VIAL ONE (09:26)
[2018-06-03] MEDS ORDERED: MIDAZOLAM 2 MG/2 ML VIAL ONE (09:26)
[2018-06-03] MEDS ORDERED: ePHEDrine 50 MG/ML AMP ONE (09:27)
[2018-06-03] MEDS ORDERED: SEVOFLURANE 1 UNIT/15 MINUTE INH ONE (09:28)
[2018-06-03] MEDS ORDERED: ONDANSETRON 4 MG/2 ML VIAL ONE (09:28)
[2018-06-03] MEDS ORDERED: NEOSTIGMINE 10 MG/10 ML VIAL ONE (09:29)
[2018-06-03] MEDS ORDERED: ACETAMINOPHEN 1,000 MG/100 ML VIAL IV ONE (09:29)
[2018-06-03] MEDS ORDERED: ETOMIDATE 40 MG/20 ML VIAL IV ONE (09:29)
[2018-06-03] MEDS ORDERED: GLYCOPYRROLATE 0.4 MG/2 ML VIAL ONE (09:29)
[2018-06-03] MEDS ORDERED: ROCURONIUM 100 MG/10 ML VIAL IV ONE (09:29)
[2018-06-03] MEDS ORDERED: PROPOFOL 200 MG/20 ML VIAL IV ONE (09:30)
[2018-06-03] MEDS ORDERED: PHENYLEPHRINE 1 MG/10 ML SYRINGE IV ONE (09:30)
[2018-06-03] MEDS: MELOXICAM 7.5 MG TABLET PO SCH (14:23)
[2018-06-03] MEDS: DOCUSATE SODIUM 100 MG CAPSULE PO SCH ×2 (14:24→20:32)
[2018-06-03] MEDS: PRAZOSIN 1 MG CAPSULE PO SCH ×2 (14:25→20:32)
[2018-06-03] MEDS: POLYETHYLENE GLYCOL POWDER 17 GM PACK PO SCH (14:26)
[2018-06-03] MEDS: FUROSEMIDE 80 MG TABLET PO SCH (14:26)
[2018-06-03] MEDS: LOSARTAN 50 MG TABLET PO SCH (14:26)
[2018-06-03] MEDS: OLANZapine 5 MG TABLET PO SCH ×2 (14:29→20:32)
[2018-06-03] MEDS: TIMOLOL 0.5% OPH SOLN 5 ML BOTTLE BOTH EYES SCH (14:29)
[2018-06-03] MEDS: ceFAZolin 1,000 MG in SYRINGE 1 EACH IV SCH ×2 (16:07→23:39)
[2018-06-03] MEDS: SIMVASTATIN 20 MG TABLET PO SCH (20:32)
[2018-06-03] MEDS: LATANOPROST 0.005% OPH SOLN 2.5 ML BOTTLE BOTH EYES SCH (20:33)
[2018-06-04 06:04] LABS: Basophils # 0.1 10*3/uL (0.0-0.2); Basophils % 0.6 % (0.0-0.8); Eosinophils # 0.3 10*3/uL (0.0-0.87); Eosinophils % 3.2 % (0.00-10.9); Hematocrit 32.7 VOL% (35.7-47.0); Hemoglobin 10.3 GM/DL (12.0-16.0); Immature Granulocytes % 0.4 %; Immature Granulocytes Absolute 0.04 #; Lymphocytes # 0.8 10*3/uL (1.4-4.0); Lymphocytes % 7.9 % (21.3-54.2); Mean Corpuscular HGB Conc 31.5 GM/DL (32-36); Mean Corpuscular Hemoglobin 30 PG (27-34); Mean Corpuscular Volume 95.3 FL (87-102); Mean Platelet Volume 10.4 FL (9.6-12.0); Monocytes # 1.2 10*3/uL (0.11-0.8); Monocytes % 12.1 % (1.7-12.7); Neutrophils # 7.2 10*3/uL (1.4-7.4); Neutrophils % 75.8 % (38.7-73.9); Platelet Count 192 T/CUMM (130-400); Red Blood Count 3.43 MC/CUMM (3.8-5.5); Red Cell Distribution Width 14.2 % (9.3-17.3); White Blood Count 9.5 T/CUMM (4-12)
[2018-06-04] MEDS: ENOXAPARIN 30 MG/0.3 ML SYRINGE SUBCUT SCH (06:21)
[2018-06-04] MEDS: LEVOTHYROXINE 25 MCG TABLET PO SCH (06:21)
[2018-06-04 06:26] LABS: Calcium 7.6 MG/DL (8.5-10.1); Osmolality,Calculated 278.8 MOS/KG (273-304); Potassium 4.7 MMOL/L (3.5-5.1)
[2018-06-04 06:34] LABS: Calcium 8.1 MG/DL (8.5-10.1); Osmolality,Calculated 280.7 MOS/KG (273-304); Potassium 4.7 MMOL/L (3.5-5.1)
[2018-06-04] MEDS: TIMOLOL 0.5% OPH SOLN 5 ML BOTTLE BOTH EYES SCH (08:18)
[2018-06-04] MEDS ORDERED: ACETAMINOPHEN 325 MG TABLET PO PRN (09:00)
[2018-06-04] MEDS: amLODIPine 2.5 MG TABLET PO SCH ×2 (17:39→20:50)
[2018-06-04] MEDS: METOPROLOL TARTRATE 50 MG TABLET PO SCH ×2 (18:09→20:49)
[2018-06-04] MEDS: DOCUSATE SODIUM 100 MG CAPSULE PO SCH ×2 (18:09→20:50)
[2018-06-04] MEDS: carBAMazepine 200 MG TABLET PO SCH ×3 (18:10→20:50)
[2018-06-04] MEDS: POLYETHYLENE GLYCOL POWDER 17 GM PACK PO SCH (18:10)
[2018-06-04] MEDS: FUROSEMIDE 80 MG TABLET PO SCH (18:11)
[2018-06-04] MEDS: LEVOFLOXACIN 250 MG TABLET PO SCH (18:11)
[2018-06-04] MEDS: MELOXICAM 7.5 MG TABLET PO SCH (18:11)
[2018-06-04] MEDS: LOSARTAN 50 MG TABLET PO SCH (18:11)
[2018-06-04] MEDS: PRAZOSIN 1 MG CAPSULE PO SCH ×2 (18:12→20:49)
[2018-06-04] MEDS: OLANZapine 5 MG TABLET PO SCH ×2 (18:12→20:49)
[2018-06-04] MEDS: SIMVASTATIN 20 MG TABLET PO SCH (20:50)
[2018-06-04] MEDS: LATANOPROST 0.005% OPH SOLN 2.5 ML BOTTLE BOTH EYES SCH (20:57)
[2018-06-05] MEDS: LEVOTHYROXINE 25 MCG TABLET PO SCH (06:18)
[2018-06-05] MEDS: ENOXAPARIN 30 MG/0.3 ML SYRINGE SUBCUT SCH (06:18)
[2018-06-05] MEDS: OLANZapine 5 MG TABLET PO SCH ×2 (10:10→21:17)
[2018-06-05] MEDS: MELOXICAM 7.5 MG TABLET PO SCH (10:10)
[2018-06-05] MEDS: carBAMazepine 200 MG TABLET PO SCH ×4 (10:10→21:17)
[2018-06-05] MEDS: METOPROLOL TARTRATE 50 MG TABLET PO SCH ×2 (10:11→21:17)
[2018-06-05] MEDS: FUROSEMIDE 80 MG TABLET PO SCH (10:11)
[2018-06-05] MEDS: DOCUSATE SODIUM 100 MG CAPSULE PO SCH ×2 (10:11→21:18)
[2018-06-05] MEDS: PRAZOSIN 1 MG CAPSULE PO SCH ×2 (10:11→21:17)
[2018-06-05] MEDS: LOSARTAN 50 MG TABLET PO SCH (10:11)
[2018-06-05] MEDS: TIMOLOL 0.5% OPH SOLN 5 ML BOTTLE BOTH EYES SCH (10:12)
[2018-06-05] MEDS: amLODIPine 2.5 MG TABLET PO SCH ×2 (10:12→21:18)
[2018-06-05] MEDS: POLYETHYLENE GLYCOL POWDER 17 GM PACK PO SCH (10:12)
[2018-06-05] MEDS: SIMVASTATIN 20 MG TABLET PO SCH (21:18)
[2018-06-05] MEDS: LATANOPROST 0.005% OPH SOLN 2.5 ML BOTTLE BOTH EYES SCH (21:18)
[2018-06-06] MEDS: LEVOTHYROXINE 25 MCG TABLET PO SCH (06:27)
[2018-06-06] MEDS: ENOXAPARIN 30 MG/0.3 ML SYRINGE SUBCUT SCH (06:27)
[2018-06-06] MEDS: DOCUSATE SODIUM 100 MG CAPSULE PO SCH ×2 (09:34→21:47)
[2018-06-06] MEDS: FUROSEMIDE 80 MG TABLET PO SCH (09:35)
[2018-06-06] MEDS: LEVOFLOXACIN 250 MG TABLET PO SCH (09:35)
[2018-06-06] MEDS: LOSARTAN 50 MG TABLET PO SCH (09:35)
[2018-06-06] MEDS: METOPROLOL TARTRATE 50 MG TABLET PO SCH ×2 (09:35→21:47)
[2018-06-06] MEDS: amLODIPine 2.5 MG TABLET PO SCH ×2 (09:36→21:47)
[2018-06-06] MEDS: MELOXICAM 7.5 MG TABLET PO SCH (09:36)
[2018-06-06] MEDS: POLYETHYLENE GLYCOL POWDER 17 GM PACK PO SCH (09:36)
[2018-06-06] MEDS: carBAMazepine 200 MG TABLET PO SCH ×4 (09:37→21:47)
[2018-06-06] MEDS: OLANZapine 5 MG TABLET PO SCH ×2 (09:37→21:47)
[2018-06-06] MEDS: TIMOLOL 0.5% OPH SOLN 5 ML BOTTLE BOTH EYES SCH (09:38)
[2018-06-06] MEDS: PRAZOSIN 1 MG CAPSULE PO SCH ×2 (09:41→21:47)
[2018-06-06] MEDS: SIMVASTATIN 20 MG TABLET PO SCH (21:47)
[2018-06-06] MEDS: LATANOPROST 0.005% OPH SOLN 2.5 ML BOTTLE BOTH EYES SCH (21:48)
[2018-06-07 06:27] LABS: Basophils # 0.1 10*3/uL (0.0-0.2); Basophils % 0.7 % (0.0-0.8); Eosinophils # 0.8 10*3/uL (0.0-0.87); Hematocrit 29.6 VOL% (35.7-47.0); Hemoglobin 8.9 GM/DL (12.0-16.0); Immature Granulocytes % 0.3 %; Immature Granulocytes Absolute 0.02 #; Lymphocytes # 1.3 10*3/uL (1.4-4.0); Lymphocytes % 17.2 % (21.3-54.2); Mean Corpuscular HGB Conc 30.1 GM/DL (32-36); Mean Corpuscular Hemoglobin 29 PG (27-34); Mean Corpuscular Volume 95.5 FL (87-102); Mean Platelet Volume 10.1 FL (9.6-12.0); Monocytes # 0.9 10*3/uL (0.11-0.8); Monocytes % 12.3 % (1.7-12.7); Neutrophils # 4.5 10*3/uL (1.4-7.4); Neutrophils % 59.5 % (38.7-73.9); Platelet Count 236 T/CUMM (130-400); Red Cell Distribution Width 14.3 % (9.3-17.3); White Blood Count 7.5 T/CUMM (4-12)
[2018-06-07 06:42] LABS: Osmolality,Calculated 298.3 MOS/KG (273-304); Potassium 4.7 MMOL/L (3.5-5.1)
[2018-06-07] MEDS: LEVOTHYROXINE 25 MCG TABLET PO SCH (07:08)
[2018-06-07] MEDS: ENOXAPARIN 30 MG/0.3 ML SYRINGE SUBCUT SCH (07:08)
[2018-06-07] MEDS: amLODIPine 2.5 MG TABLET PO SCH (09:00)
[2018-06-07] MEDS: DOCUSATE SODIUM 100 MG CAPSULE PO SCH (09:00)
[2018-06-07] MEDS: OLANZapine 5 MG TABLET PO SCH (09:00)
[2018-06-07] MEDS: carBAMazepine 200 MG TABLET PO SCH ×3 (09:00→17:02)
[2018-06-07] MEDS: PRAZOSIN 1 MG CAPSULE PO SCH (09:00)
[2018-06-07] MEDS: METOPROLOL TARTRATE 50 MG TABLET PO SCH (09:00)
[2018-06-07] MEDS: POLYETHYLENE GLYCOL POWDER 17 GM PACK PO SCH (09:00)
[2018-06-07] MEDS ORDERED: HEPARIN 10,000 UNIT/10 ML VIAL IV PRN (15:35)
[2018-06-07] MEDS: FUROSEMIDE 80 MG TABLET PO SCH (16:58)
[2018-06-07] MEDS: LOSARTAN 50 MG TABLET PO SCH (16:58)
[2018-06-07] MEDS: MELOXICAM 7.5 MG TABLET PO SCH (17:00)
[2018-06-07] MEDS: TIMOLOL 0.5% OPH SOLN 5 ML BOTTLE BOTH EYES SCH (17:47)
[2018-06-07 20:16] VITALS: BP 166/96
== END 2018-06-07 18:05 | DRG 466 ==
LOC: EDBD → EDUNIT# → N.ED 09:54 → N.EDINP 11:49 → N.3E 12:32
PROVIDERS: ADMIT Orthopaedic Surgery; ATTEND Orthopaedic Surgery

== ENCOUNTER 2020-04-20 10:39 | Inpatient (IN) ==
[2020-04-20] MEDS ORDERED: propofoL 200 MG/20 ML VIAL IV ONE (13:25)
[2020-04-20] MEDS ORDERED: SODIUM CHLORIDE 0.9% 250 ML IV ONE (13:26)
[2020-04-20] MEDS ORDERED: LIDOCAINE 2% 5 ML VIAL ONE (13:26)
[2020-04-20] MEDS ORDERED: hydrALAZINE 20 MG/1 ML VIAL ONE (13:26)
[2020-04-20 13:57] LABS: Basophils # 0.1 10*3/uL (0.0-0.2); Basophils % 0.9 % (0.0-0.8); Eosinophils # 0.2 10*3/uL (0.0-0.87); Hematocrit 37.3 VOL% (35.7-47.0); Hemoglobin 12.1 GM/DL (12.0-16.0); Immature Granulocytes % 0.5 %; Immature Granulocytes Absolute 0.03 #; Lymphocytes # 0.9 10*3/uL (1.4-4.0); Lymphocytes % 14.3 % (21.3-54.2); Mean Corpuscular HGB Conc 32.4 GM/DL (32-36); Mean Corpuscular Volume 101.1 FL (87-102); Mean Platelet Volume 10.6 FL (9.6-12.0); Monocytes % 6.5 % (1.7-12.7); Neutrophils % 74.8 % (38.7-73.9); Platelet Count 202 T/CUMM (130-400); Red Blood Count 3.69 MC/CUMM (3.8-5.5); Red Cell Distribution Width 13.6 % (9.3-17.3); White Blood Count 6.6 T/CUMM (4-12)
[2020-04-20] MEDS ORDERED: hydrALAZINE 20 MG/1 ML VIAL IV STA ×2 (14:20→16:00)
[2020-04-20 14:49] LABS: PT Patient Result 10.9 SECS (9.8-11.9)
[2020-04-20 14:50] LABS: Albumin 3.6 G/DL (3.4-5.0); Bilirubin,Total 0.5 MG/DL (0.2-1.0); Calcium 9.7 MG/DL (8.5-10.1); Osmolality,Calculated 287.8 MOS/KG (273-304); Total Protein 6.7 G/DL (6.4-8.3)
[2020-04-20] MEDS ORDERED: GLUCAGON 1 MG VIAL IM PRN (15:29)
[2020-04-20] MEDS ORDERED: ACETAMINOPHEN 325 MG TABLET PO PRN (15:29)
[2020-04-20] MEDS ORDERED: DEXTROSE 50% 25 GM/50 ML VIAL IV PRN (15:29)
[2020-04-20] MEDS ORDERED: ONDANSETRON 4 MG/2 ML VIAL IV PRN (15:29)
[2020-04-20] MEDS ORDERED: LABETALOL 20 MG/4 ML SYRINGE IV PRN (17:43)
[2020-04-20 19:04] LABS: Apearance,Urine CLEAR (Clear); Bacteria,Urine Occasional /HPF (Few); Bilirubin,Urine Negative (Negative); Blood, Urine Negative (Negative); Glucose,Urine (UA) Negative (Negative); Ketones,Urine Negative (Negative); Nitrite,Urine Negative (Negative); Protein,Urine 100 MG/DL; RBC,Urine 2 /HPF (0-4); Squamous Epithelial Cell,Urine Occasional /HPF (0-10); Urine Color Yellow (Yellow); Urine Specific Gravity 1.005 (1.001-1.035); Urine Urobilinogen < 2.0 EU/DL (0.2-1.0); WBC,Urine 2 /HPF (0-6)
[2020-04-21 04:17] LABS: Basophils # 0.1 10*3/uL (0.0-0.2); Basophils % 0.9 % (0.0-0.8); Eosinophils # 0.1 10*3/uL (0.0-0.87); Eosinophils % 1.3 % (0.00-10.9); Hematocrit 34.8 VOL% (35.7-47.0); Hemoglobin 11.1 GM/DL (12.0-16.0); Immature Granulocytes % 0.3 %; Immature Granulocytes Absolute 0.02 #; Lymphocytes % 12.2 % (21.3-54.2); Mean Corpuscular HGB Conc 31.9 GM/DL (32-36); Mean Corpuscular Volume 100.3 FL (87-102); Mean Platelet Volume 10.1 FL (9.6-12.0); Monocytes % 8.5 % (1.7-12.7); Neutrophils % 76.8 % (38.7-73.9); Platelet Count 191 T/CUMM (130-400); Red Blood Count 3.47 MC/CUMM (3.8-5.5); Red Cell Distribution Width 13.9 % (9.3-17.3); White Blood Count 7.9 T/CUMM (4-12)
[2020-04-21 04:45] LABS: Calcium 9.4 MG/DL (8.5-10.1); Osmolality,Calculated 293.5 MOS/KG (273-304); Thyroid Stimulating Hormone 4.93 uIU/ml (0.358-3.74)
[2020-04-21] MEDS: PANTOPRAZOLE 40 MG TABLET PO SCH (09:56)
[2020-04-22] MEDS: PANTOPRAZOLE 40 MG TABLET PO SCH (11:50)
[2020-04-22] MEDS: hydrALAZINE 20 MG/1 ML VIAL IV PRN (11:54)
[2020-04-22 12:06] LABS: Free T4 (Free Thyroxine) 0.87 NG/DL (0.76-1.46)
[2020-04-22] MEDS: LATANOPROST 0.005% OPH SOLN 2.5 ML BOTTLE BOTH EYES SCH (20:11)
[2020-04-23] MEDS: hydrALAZINE 20 MG/1 ML VIAL IV PRN ×2 (03:11→21:38)
[2020-04-23 06:37] LABS: INR 1.1; PT Patient Result 12.1 SECS (9.8-11.9)
[2020-04-23 07:09] LABS: Basophils # 0.1 10*3/uL (0.0-0.2); Basophils % 1.7 % (0.0-0.8); Eosinophils # 0.2 10*3/uL (0.0-0.87); Eosinophils % 2.9 % (0.00-10.9); Hematocrit 38.7 VOL% (35.7-47.0); Hemoglobin 12.1 GM/DL (12.0-16.0); Immature Granulocytes % 0.5 %; Immature Granulocytes Absolute 0.03 #; Lymphocytes # 1.2 10*3/uL (1.4-4.0); Mean Corpuscular HGB Conc 31.3 GM/DL (32-36); Mean Corpuscular Volume 103.2 FL (87-102); Mean Platelet Volume 9.6 FL (9.6-12.0); Monocytes % 11.6 % (1.7-12.7); Neutrophils % 64.3 % (38.7-73.9); Platelet Count 201 T/CUMM (130-400); Red Blood Count 3.75 MC/CUMM (3.8-5.5); Red Cell Distribution Width 13.8 % (9.3-17.3); White Blood Count 6.5 T/CUMM (4-12)
[2020-04-23 07:22] LABS: Risk Ratio 4.8; VLDL CHOLESTEROL 87.4 MG/DL
[2020-04-23] MEDS ORDERED: ceFAZolin 1,000 MG in SYRINGE 1 EACH IV ONE (08:00)
[2020-04-23] MEDS ORDERED: SODIUM CHLORIDE 0.9% 1,000 ML IV SCH (08:00)
[2020-04-23] MEDS ORDERED: LIDOCAINE 100 MG/5 ML SYRINGE ONE (09:00)
[2020-04-23] MEDS ORDERED: propofoL 200 MG/20 ML VIAL IV ONE (09:00)
[2020-04-23] MEDS: ACETAMINOPHEN 325 MG TABLET PEG PRN (14:39)
[2020-04-23] MEDS: TIMOLOL 0.5% OPH SOLN 5 ML BOTTLE BOTH EYES SCH (15:34)
[2020-04-23] MEDS: carBAMazepine 200 MG TABLET PEG SCH ×3 (15:34→21:25)
[2020-04-23] MEDS: OLANZapine 5 MG TABLET PEG SCH ×2 (15:34→22:55)
[2020-04-23] MEDS: LOSARTAN 50 MG TABLET PEG SCH (15:35)
[2020-04-23] MEDS ORDERED: COENZYME Q10 100 MG CAPSULE PO SCH (21:00)
[2020-04-23] MEDS ORDERED: COENZYME Q10 100 MG CAPSULE PEG SCH (21:00)
[2020-04-23] MEDS ORDERED: ATORVASTATIN 40 MG TABLET PO SCH (21:00)
[2020-04-23] MEDS: SIMVASTATIN 20 MG TABLET PEG SCH (21:25)
[2020-04-23] MEDS: LATANOPROST 0.005% OPH SOLN 2.5 ML BOTTLE BOTH EYES SCH (21:25)
[2020-04-23] MEDS: EZETIMIBE 10 MG TABLET PEG SCH (21:26)
[2020-04-24] MEDS: LEVOTHYROXINE 25 MCG TABLET PEG SCH (06:12)
[2020-04-24] MEDS ORDERED: TUBERCULIN SKIN TEST 0.1 ML SYRINGE INTRADERM ONE (08:12)
[2020-04-24] MEDS: carBAMazepine 200 MG TABLET PEG SCH ×4 (10:08→21:54)
[2020-04-24] MEDS: OLANZapine 5 MG TABLET PEG SCH ×2 (10:08→21:54)
[2020-04-24] MEDS: LOSARTAN 50 MG TABLET PEG SCH (10:09)
[2020-04-24] MEDS: TIMOLOL 0.5% OPH SOLN 5 ML BOTTLE BOTH EYES SCH (10:17)
[2020-04-24] MEDS: EZETIMIBE 10 MG TABLET PEG SCH (21:54)
[2020-04-24] MEDS: SIMVASTATIN 20 MG TABLET PEG SCH (21:55)
[2020-04-24] MEDS: ACETAMINOPHEN 325 MG TABLET PEG PRN (21:55)
[2020-04-24] MEDS: LATANOPROST 0.005% OPH SOLN 2.5 ML BOTTLE BOTH EYES SCH (21:56)
[2020-04-25 06:22] LABS: Calcium 9.3 MG/DL (8.5-10.1); Osmolality,Calculated 290.7 MOS/KG (273-304)
[2020-04-25] MEDS: LEVOTHYROXINE 25 MCG TABLET PEG SCH (06:53)
[2020-04-25] MEDS: ACETAMINOPHEN 325 MG TABLET PEG PRN (10:15)
[2020-04-25] MEDS: OLANZapine 5 MG TABLET PEG SCH ×2 (10:15→22:26)
[2020-04-25] MEDS: carBAMazepine 200 MG TABLET PEG SCH ×4 (10:17→22:26)
[2020-04-25] MEDS: LOSARTAN 50 MG TABLET PEG SCH (10:17)
[2020-04-25] MEDS: TIMOLOL 0.5% OPH SOLN 5 ML BOTTLE BOTH EYES SCH (10:17)
[2020-04-25] MEDS: SEVELAMER CARBONATE POWDER 2.4 GM PACK PEG SCH ×2 (11:41→14:19)
[2020-04-25] MEDS: EZETIMIBE 10 MG TABLET PEG SCH (22:26)
[2020-04-25] MEDS: SIMVASTATIN 20 MG TABLET PEG SCH (22:26)
[2020-04-25] MEDS: LATANOPROST 0.005% OPH SOLN 2.5 ML BOTTLE BOTH EYES SCH (22:32)
[2020-04-26] MEDS: SEVELAMER CARBONATE POWDER 2.4 GM PACK PEG SCH ×3 (00:19→13:02)
[2020-04-26] MEDS: LEVOTHYROXINE 25 MCG TABLET PEG SCH (06:06)
[2020-04-26] MEDS: carBAMazepine 200 MG TABLET PEG SCH ×2 (08:25→13:37)
[2020-04-26] MEDS: TIMOLOL 0.5% OPH SOLN 5 ML BOTTLE BOTH EYES SCH (08:25)
[2020-04-26] MEDS: OLANZapine 5 MG TABLET PEG SCH (13:02)
[2020-04-26] MEDS: LOSARTAN 50 MG TABLET PEG SCH (13:33)
[2020-04-26 13:39] VITALS: BP 115/44
[2020-04-26] MEDS ORDERED: MAGNESIUM HYDROXIDE SUSP 30 ML UDCUP PEG ONE (14:02)
[2020-04-27] MEDS ORDERED: cloNIDine 0.3 MG/24 HR PATCH TRANSDERM SCH (09:00)
== END 2020-04-26 16:15 | disposition swing bed (61) | DRG 154 ==
LOC: EDUNIT# → EDBD → N.ED 10:39 → N.EDINP 10:39 → SUATTDRO 15:27 → N.3E 17:24
PROVIDERS: ADMIT Internal Medicine; ATTEND Hospitalist
PROC: EGDWPEG (ICD-10-PCS; 2020-04-23 10:05)

== ENCOUNTER 2020-12-17 19:25 | Observation (INO) ==
[2020-12-17] MEDS ORDERED: hydrALAZINE 20 MG/1 ML VIAL IV STA (20:06)
[2020-12-17 20:32] LABS: Basophils % 0.9 % (0.0-0.8); Eosinophils # 0.1 10*3/uL (0.0-0.87); Eosinophils % 4.1 % (0.00-10.9); Hematocrit 39.1 VOL% (35.7-47.0); Hemoglobin 12.4 GM/DL (12.0-16.0); Immature Granulocytes % 0.6 %; Immature Granulocytes Absolute 0.02 #; Lymphocytes # 0.6 10*3/uL (1.4-4.0); Lymphocytes % 17.2 % (21.3-54.2); Mean Corpuscular HGB Conc 31.7 GM/DL (32-36); Mean Corpuscular Volume 99.5 FL (87-102); Monocytes % 12.2 % (1.7-12.7); Platelet Count 165 T/CUMM (130-400); Red Blood Count 3.93 MC/CUMM (3.8-5.5); Red Cell Distribution Width 17.9 % (9.3-17.3); White Blood Count 3.4 T/CUMM (4-12)
[2020-12-17 20:41] LABS: PT Patient Result 11.4 SECS (9.8-11.9)
[2020-12-17 20:45] LABS: Albumin 3.7 G/DL (3.4-5.0); Bilirubin,Total 0.4 MG/DL (0.2-1.0); Calcium 9.5 MG/DL (8.5-10.1); Osmolality,Calculated 274.8 MOS/KG (273-304); Potassium 4.1 MMOL/L (3.5-5.1); Total Protein 6.2 G/DL (6.4-8.2)
[2020-12-17] MEDS ORDERED: DEXTROSE 50% 25 GM/50 ML VIAL IV PRN ×2 (21:41)
[2020-12-17] MEDS ORDERED: GLUCAGON 1 MG VIAL IM PRN ×2 (21:41)
[2020-12-17] MEDS ORDERED: ONDANSETRON 4 MG/2 ML VIAL IV PRN (21:41)
[2020-12-17] MEDS ORDERED: NICOTINE 21 MG/24 HR PATCH TRANSDERM PRN (21:41)
[2020-12-17] MEDS ORDERED: hydrALAZINE 20 MG/1 ML VIAL IV PRN (21:41)
[2020-12-18 04:36] LABS: Basophils % 0.9 % (0.0-0.8); Eosinophils # 0.1 10*3/uL (0.0-0.87); Eosinophils % 3.2 % (0.00-10.9); Hematocrit 38.6 VOL% (35.7-47.0); Hemoglobin 12.8 GM/DL (12.0-16.0); Lymphocytes # 0.6 10*3/uL (1.4-4.0); Lymphocytes % 14.6 % (21.3-54.2); Mean Corpuscular HGB Conc 33.2 GM/DL (32-36); Mean Corpuscular Volume 96.7 FL (87-102); Mean Platelet Volume 11.6 FL (9.6-12.0); Monocytes % 11.6 % (1.7-12.7); Neutrophils % 69.7 % (38.7-73.9); Platelet Count 230 T/CUMM (130-400); Red Blood Count 3.99 MC/CUMM (3.8-5.5); Red Cell Distribution Width 18.6 % (9.3-17.3); White Blood Count 4.3 T/CUMM (4-12)
[2020-12-18] MEDS: hydrALAZINE 20 MG/1 ML VIAL IV PRN (06:26)
[2020-12-18] MEDS: LEVOTHYROXINE 25 MCG TABLET PO SCH (06:36)
[2020-12-18 06:45] LABS: Albumin 3.4 G/DL (3.4-5.0); Bilirubin,Total 0.7 MG/DL (0.2-1.0); Calcium 9.4 MG/DL (8.5-10.1); Osmolality,Calculated 275.8 MOS/KG (273-304); Potassium 4.2 MMOL/L (3.5-5.1); Total Protein 6.2 G/DL (6.4-8.2)
[2020-12-18] MEDS ORDERED: NITROGLYCERIN SL 0.4 MG TABLET SL ONE (07:08)
[2020-12-18] MEDS: NITROGLYCERIN SL 0.4 MG TABLET SL PRN ×2 (07:10→07:14)
[2020-12-18] MEDS ORDERED: MORPHINE 4 MG/1 ML VIAL IV PRN (07:14)
[2020-12-18] MEDS ORDERED: ALUM/MAG/SIMETH/LIDO VISC 1:1 30 ML BOTTLE PO ONE ×2 (07:18→07:19)
[2020-12-18] MEDS ORDERED: SODIUM CHLORIDE 0.9% 250 ML IV ONE (07:25)
[2020-12-18] MEDS ORDERED: PANTOPRAZOLE 40 MG VIAL IV ONE ×2 (07:26→07:27)
[2020-12-18] MEDS: OLANZapine 5 MG TABLET PO SCH ×2 (09:44→21:50)
[2020-12-18] MEDS: hydrALAZINE 25 MG TABLET PO SCH ×3 (09:45→21:50)
[2020-12-18] MEDS: carBAMazepine 200 MG TABLET PO SCH ×4 (09:45→21:50)
[2020-12-18] MEDS: MELOXICAM 7.5 MG TABLET PO SCH (09:45)
[2020-12-18] MEDS: TIMOLOL 0.5% OPH SOLN 5 ML BOTTLE BOTH EYES SCH (09:45)
[2020-12-18] MEDS: ASPIRIN EC 81 MG TABLET PO SCH (09:45)
[2020-12-18] MEDS: PRAZOSIN 1 MG CAPSULE PO SCH ×2 (09:45→21:49)
[2020-12-18] MEDS: LOSARTAN 50 MG TABLET PO SCH (09:45)
[2020-12-18] MEDS: SEVELAMER CARBONATE POWDER 2.4 GM PACK PO SCH ×3 (09:53→22:02)
[2020-12-18] MEDS: carvediloL 6.25 MG TABLET PO SCH ×2 (11:28→21:50)
[2020-12-18] MEDS: ACETAMINOPHEN 325 MG TABLET PO PRN (14:27)
[2020-12-18] MEDS: SIMVASTATIN 20 MG TABLET PO SCH (21:50)
[2020-12-18] MEDS: LATANOPROST 0.005% OPH SOLN 2.5 ML BOTTLE BOTH EYES SCH (21:59)
[2020-12-19] MEDS: ACETAMINOPHEN 325 MG TABLET PO PRN (05:34)
[2020-12-19] MEDS: LEVOTHYROXINE 25 MCG TABLET PO SCH (05:37)
[2020-12-19 05:59] LABS: Basophils # 0.1 10*3/uL (0.0-0.2); Basophils % 1.4 % (0.0-0.8); Eosinophils # 0.1 10*3/uL (0.0-0.87); Eosinophils % 2.9 % (0.00-10.9); Hematocrit 40.7 VOL% (35.7-47.0); Hemoglobin 12.8 GM/DL (12.0-16.0); Immature Granulocytes % 0.2 %; Immature Granulocytes Absolute 0.01 #; Lymphocytes # 1.1 10*3/uL (1.4-4.0); Lymphocytes % 22.9 % (21.3-54.2); Mean Corpuscular HGB Conc 31.4 GM/DL (32-36); Mean Corpuscular Volume 101.8 FL (87-102); Mean Platelet Volume 9.9 FL (9.6-12.0); Monocytes % 12.5 % (1.7-12.7); Neutrophils % 60.1 % (38.7-73.9); Platelet Count 165 T/CUMM (130-400); White Blood Count 4.9 T/CUMM (4-12)
[2020-12-19 06:19] LABS: Calcium 9.6 MG/DL (8.5-10.1); Osmolality,Calculated 284.5 MOS/KG (273-304); Potassium 5.3 MMOL/L (3.5-5.1); Risk Ratio 2.28; VLDL CHOLESTEROL 17.6 MG/DL
[2020-12-19] MEDS: MELOXICAM 7.5 MG TABLET PO SCH (08:53)
[2020-12-19] MEDS: TIMOLOL 0.5% OPH SOLN 5 ML BOTTLE BOTH EYES SCH (08:53)
[2020-12-19] MEDS: PRAZOSIN 1 MG CAPSULE PO SCH ×2 (08:54→22:24)
[2020-12-19] MEDS: hydrALAZINE 25 MG TABLET PO SCH ×3 (08:54→22:24)
[2020-12-19] MEDS: LOSARTAN 50 MG TABLET PO SCH (08:54)
[2020-12-19] MEDS: OLANZapine 5 MG TABLET PO SCH ×2 (08:54→22:31)
[2020-12-19] MEDS: carBAMazepine 200 MG TABLET PO SCH ×4 (08:54→22:24)
[2020-12-19] MEDS: ASPIRIN EC 81 MG TABLET PO SCH (08:54)
[2020-12-19] MEDS: carvediloL 6.25 MG TABLET PO SCH ×2 (09:02→22:24)
[2020-12-19] MEDS: SEVELAMER CARBONATE POWDER 2.4 GM PACK PO SCH ×3 (09:02→22:24)
[2020-12-19] MEDS: SIMVASTATIN 20 MG TABLET PO SCH (22:24)
[2020-12-19] MEDS: LATANOPROST 0.005% OPH SOLN 2.5 ML BOTTLE BOTH EYES SCH (22:25)
[2020-12-20 05:23] LABS: Basophils # 0.1 10*3/uL (0.0-0.2); Basophils % 1.1 % (0.0-0.8); Eosinophils # 0.3 10*3/uL (0.0-0.87); Eosinophils % 5.3 % (0.00-10.9); Hematocrit 42.3 VOL% (35.7-47.0); Hemoglobin 12.8 GM/DL (12.0-16.0); Immature Granulocytes % 0.2 %; Immature Granulocytes Absolute 0.01 #; Mean Corpuscular HGB Conc 30.3 GM/DL (32-36); Mean Corpuscular Volume 104.7 FL (87-102); Mean Platelet Volume 10.2 FL (9.6-12.0); Neutrophils % 65.4 % (38.7-73.9); Platelet Count 154 T/CUMM (130-400); Red Blood Count 4.04 MC/CUMM (3.8-5.5); Red Cell Distribution Width 17.7 % (9.3-17.3); White Blood Count 5.3 T/CUMM (4-12)
[2020-12-20 06:03] LABS: Calcium 9.2 MG/DL (8.5-10.1); Osmolality,Calculated 277.8 MOS/KG (273-304); Potassium 4.9 MMOL/L (3.5-5.1)
[2020-12-20] MEDS: hydrALAZINE 20 MG/1 ML VIAL IV PRN (06:24)
[2020-12-20] MEDS ORDERED: LEVOTHYROXINE 25 MCG TABLET PO SCH (06:30)
[2020-12-20] MEDS ORDERED: carvediloL 12.5 MG TABLET PO SCH (09:00)
[2020-12-20] MEDS: TIMOLOL 0.5% OPH SOLN 5 ML BOTTLE BOTH EYES SCH (10:15)
[2020-12-20] MEDS: SEVELAMER CARBONATE POWDER 2.4 GM PACK PO SCH (10:15)
[2020-12-20] MEDS: OLANZapine 5 MG TABLET PO SCH (10:15)
[2020-12-20] MEDS: PRAZOSIN 1 MG CAPSULE PO SCH (10:16)
[2020-12-20] MEDS: LOSARTAN 50 MG TABLET PO SCH (10:16)
[2020-12-20] MEDS: ASPIRIN EC 81 MG TABLET PO SCH (10:16)
[2020-12-20] MEDS: MELOXICAM 7.5 MG TABLET PO SCH (10:16)
[2020-12-20] MEDS: carBAMazepine 200 MG TABLET PO SCH (10:16)
[2020-12-20] MEDS: hydrALAZINE 25 MG TABLET PO SCH (10:51)
[2020-12-20 12:23] VITALS: BP 169/69
== END 2020-12-20 13:58 ==
LOC: EDUNIT# → EDBD → N.EDINP 19:25 → N.ED 19:25 → N.TELEN 12-18 04:52
PROVIDERS: ADMIT Internal Medicine; ATTEND Internal Medicine

== ENCOUNTER 2020-12-30 07:39 | Inpatient (IN) ==
[2020-12-30 08:37] LABS: Basophils % 0.4 % (0.0-0.8); Eosinophils % 0.4 % (0.00-10.9); Hematocrit 43.2 VOL% (35.7-47.0); Immature Granulocytes % 0.5 %; Immature Granulocytes Absolute 0.05 #; Lymphocytes # 0.8 10*3/uL (1.4-4.0); Lymphocytes % 8.6 % (21.3-54.2); Mean Corpuscular HGB Conc 32.4 GM/DL (32-36); Mean Platelet Volume 9.8 FL (9.6-12.0); Monocytes % 9.6 % (1.7-12.7); Neutrophils % 80.5 % (38.7-73.9); Platelet Count 226 T/CUMM (130-400); Red Blood Count 4.41 MC/CUMM (3.8-5.5); Red Cell Distribution Width 15.9 % (9.3-17.3); White Blood Count 9.2 T/CUMM (4-12)
[2020-12-30 08:54] LABS: Calcium 8.7 MG/DL (8.5-10.1); Osmolality,Calculated 285.2 MOS/KG (273-304)
[2020-12-30 08:58] LABS: Potassium 6.6 MMOL/L (3.5-5.1)
[2020-12-30] MEDS ORDERED: INSULIN REGULAR 100 UNIT/ML IV STA (09:01)
[2020-12-30] MEDS ORDERED: DEXTROSE 50% 25 GM/50 ML VIAL IV STA (09:01)
[2020-12-30] MEDS ORDERED: SODIUM BICARBONATE 50 MEQ/50 ML VIAL IV STA (09:01)
[2020-12-30] MEDS ORDERED: CALCIUM CHLORIDE 1,000 MG/10 ML SYRINGE IV STA (09:02)
[2020-12-30] MEDS ORDERED: ONDANSETRON 4 MG/2 ML VIAL IV PRN (09:36)
[2020-12-30] MEDS ORDERED: DEXTROSE 50% 25 GM/50 ML VIAL IV PRN (09:36)
[2020-12-30] MEDS ORDERED: GLUCAGON 1 MG VIAL IM PRN (09:36)
[2020-12-30] MEDS: LOSARTAN 50 MG TABLET PO SCH (11:30)
[2020-12-30] MEDS: ENOXAPARIN 30 MG/0.3 ML SYRINGE SUBCUT SCH (11:31)
[2020-12-30] MEDS: SEVELAMER CARBONATE POWDER 2.4 GM PACK PO SCH ×3 (11:32→22:06)
[2020-12-30] MEDS: carBAMazepine 200 MG TABLET PO SCH ×3 (16:55→21:58)
[2020-12-30] MEDS: OLANZapine 5 MG TABLET PO SCH (21:57)
[2020-12-30] MEDS: carvediloL 12.5 MG TABLET PO SCH (21:57)
[2020-12-30] MEDS: SODIUM ZIRCONIUM CYCLOSILICATE 10 GM PACK PO SCH (21:57)
[2020-12-30] MEDS: SIMVASTATIN 20 MG TABLET PO SCH (21:57)
[2020-12-30] MEDS: PRAZOSIN 1 MG CAPSULE PO SCH (21:58)
[2020-12-30] MEDS: hydrALAZINE 20 MG/1 ML VIAL IV PRN (22:06)
[2020-12-30] MEDS: LATANOPROST 0.005% OPH SOLN 2.5 ML BOTTLE BOTH EYES SCH (22:06)
[2020-12-31 06:03] LABS: Albumin 2.9 G/DL (3.4-5.0); Bilirubin,Total 1.4 MG/DL (0.2-1.0); Calcium 8.5 MG/DL (8.5-10.1); Osmolality,Calculated 279.2 MOS/KG (273-304); Potassium 4.4 MMOL/L (3.5-5.1); Total Protein 5.3 G/DL (6.4-8.2)
[2020-12-31] MEDS: LEVOTHYROXINE 75 MCG TABLET PO SCH (07:00)
[2020-12-31] MEDS: carBAMazepine 200 MG TABLET PO SCH ×4 (09:51→22:00)
[2020-12-31] MEDS: LOSARTAN 50 MG TABLET PO SCH (09:51)
[2020-12-31] MEDS: SEVELAMER CARBONATE POWDER 2.4 GM PACK PO SCH ×3 (09:51→22:28)
[2020-12-31] MEDS: ASPIRIN EC 81 MG TABLET PO SCH (09:51)
[2020-12-31] MEDS: PRAZOSIN 1 MG CAPSULE PO SCH ×2 (09:51→22:00)
[2020-12-31] MEDS: OLANZapine 5 MG TABLET PO SCH ×3 (09:51→22:28)
[2020-12-31] MEDS: carvediloL 12.5 MG TABLET PO SCH ×2 (09:52→22:00)
[2020-12-31] MEDS: ENOXAPARIN 30 MG/0.3 ML SYRINGE SUBCUT SCH (09:53)
[2020-12-31] MEDS: TIMOLOL 0.5% OPH SOLN 5 ML BOTTLE BOTH EYES SCH (09:53)
[2020-12-31] MEDS: SODIUM ZIRCONIUM CYCLOSILICATE 10 GM PACK PO SCH (09:54)
[2020-12-31] MEDS ORDERED: TUBERCULIN SKIN TEST 0.1 ML SYRINGE INTRADERM ONE (16:52)
[2020-12-31] MEDS: hydrALAZINE 20 MG/1 ML VIAL IV PRN (18:23)
[2020-12-31] MEDS: LATANOPROST 0.005% OPH SOLN 2.5 ML BOTTLE BOTH EYES SCH (22:00)
[2020-12-31] MEDS: SIMVASTATIN 20 MG TABLET PO SCH (22:00)
[2021-01-01 05:23] LABS: Basophils # 0.1 10*3/uL (0.0-0.2); Basophils % 1.3 % (0.0-0.8); Eosinophils # 0.1 10*3/uL (0.0-0.87); Hematocrit 38.7 VOL% (35.7-47.0); Hemoglobin 12.1 GM/DL (12.0-16.0); Immature Granulocytes % 0.3 %; Immature Granulocytes Absolute 0.01 #; Lymphocytes # 0.9 10*3/uL (1.4-4.0); Lymphocytes % 21.5 % (21.3-54.2); Mean Corpuscular HGB Conc 31.3 GM/DL (32-36); Mean Corpuscular Volume 100.8 FL (87-102); Mean Platelet Volume 9.8 FL (9.6-12.0); Monocytes % 14.5 % (1.7-12.7); Neutrophils % 60.4 % (38.7-73.9); Platelet Count 170 T/CUMM (130-400); Red Blood Count 3.84 MC/CUMM (3.8-5.5); Red Cell Distribution Width 16.1 % (9.3-17.3)
[2021-01-01 05:58] LABS: Albumin 3.2 G/DL (3.4-5.0); Bilirubin,Total 0.6 MG/DL (0.2-1.0); Calcium 8.7 MG/DL (8.5-10.1); Osmolality,Calculated 282.4 MOS/KG (273-304); Potassium 4.7 MMOL/L (3.5-5.1); Total Protein 5.7 G/DL (6.4-8.2)
[2021-01-01] MEDS: LEVOTHYROXINE 75 MCG TABLET PO SCH (06:05)
[2021-01-01] MEDS ORDERED: LOSARTAN 50 MG TABLET PO SCH (09:00)
[2021-01-01] MEDS: carBAMazepine 200 MG TABLET PO SCH ×2 (13:49→14:44)
[2021-01-01] MEDS: ASPIRIN EC 81 MG TABLET PO SCH (13:49)
[2021-01-01] MEDS: carvediloL 12.5 MG TABLET PO SCH (13:49)
[2021-01-01] MEDS: TIMOLOL 0.5% OPH SOLN 5 ML BOTTLE BOTH EYES SCH (13:50)
[2021-01-01] MEDS: SEVELAMER CARBONATE POWDER 2.4 GM PACK PO SCH ×2 (13:50→14:55)
[2021-01-01] MEDS: ENOXAPARIN 30 MG/0.3 ML SYRINGE SUBCUT SCH (13:50)
[2021-01-01] MEDS: SODIUM ZIRCONIUM CYCLOSILICATE 10 GM PACK PO SCH (13:50)
[2021-01-01] MEDS: OLANZapine 5 MG TABLET PO SCH (14:44)
[2021-01-01] MEDS: PRAZOSIN 1 MG CAPSULE PO SCH (14:45)
[2021-01-01 16:22] VITALS: BP 166/70
[2021-01-01] MEDS ORDERED: DOXAZOSIN 1 MG TABLET PO SCH (21:00)
== END 2021-01-01 16:37 | DRG 640 ==
LOC: EDUNIT# → N.ED 07:39 → N.EDINP 09:36 → N.TELEN 15:00
PROVIDERS: ADMIT Internal Medicine; ATTEND Internal Medicine

== ENCOUNTER 2021-05-20 18:24 | Inpatient (IN) ==
[2021-05-20] MEDS ORDERED: ONDANSETRON 4 MG/2 ML VIAL IV STA (18:54)
[2021-05-20] MEDS ORDERED: DIPH/TET/ACEL PERT BOOSTER VACCINE 0.5 ML VIAL IM ONE (18:54)
[2021-05-20] MEDS ORDERED: TISSUE ADHESIVE 1 EACH APPLICATOR TOP ONE (20:02)
[2021-05-20 20:10] LABS: Basophils % 0.7 % (0.0-0.8); Eosinophils # 0.3 10*3/uL (0.0-0.87); Eosinophils % 5.9 % (0.00-10.9); Hematocrit 43.2 VOL% (35.7-47.0); Hemoglobin 13.1 GM/DL (12.0-16.0); Immature Granulocytes % 0.6 %; Immature Granulocytes Absolute 0.03 #; Lymphocytes # 0.7 10*3/uL (1.4-4.0); Lymphocytes % 12.3 % (21.3-54.2); Mean Corpuscular HGB Conc 30.3 GM/DL (32-36); Mean Corpuscular Volume 103.8 FL (87-102); Mean Platelet Volume 10.1 FL (9.6-12.0); Monocytes % 9.9 % (1.7-12.7); Neutrophils % 70.6 % (38.7-73.9); Platelet Count 212 T/CUMM (130-400); Red Blood Count 4.16 MC/CUMM (3.8-5.5); Red Cell Distribution Width 16.1 % (9.3-17.3); White Blood Count 5.4 T/CUMM (4-12)
[2021-05-20 20:57] LABS: Albumin 3.3 G/DL (3.4-5.0); Calcium 9.3 MG/DL (8.5-10.1); Osmolality,Calculated 268.2 MOS/KG (273-304); Potassium 4.3 MMOL/L (3.5-5.1); Total Protein 7.6 G/DL (6.4-8.2)
[2021-05-20] MEDS ORDERED: hydrALAZINE 20 MG/1 ML VIAL IV PRN (22:30)
[2021-05-20] MEDS ORDERED: DEXTROSE 50% 25 GM/50 ML VIAL IV PRN (22:30)
[2021-05-20] MEDS ORDERED: GLUCAGON 1 MG VIAL IM PRN (22:30)
[2021-05-20] MEDS ORDERED: ACETAMINOPHEN 325 MG TABLET PO PRN (22:30)
[2021-05-21 00:59] LABS: Hepatitis B Surface Ag Quant < 0.10 Index; Hepatitis B Surface Ag Result Non-Reactive (NonReactive); Hepatitis C Virus Ab Quant 0.04 Index; Hepatitis C Virus Ab Result Non-Reactive (NonReactive)
[2021-05-21] MEDS: MORPHINE 2 MG/1 ML SYRINGE IV PRN ×3 (01:34→21:11)
[2021-05-21] MEDS: HEPARIN 5,000 UNIT/1 ML VIAL SUBCUT SCH ×3 (06:02→23:24)
[2021-05-21 08:48] LABS: Basophils # 0.1 10*3/uL (0.0-0.2); Basophils % 0.9 % (0.0-0.8); Eosinophils # 0.4 10*3/uL (0.0-0.87); Eosinophils % 6.9 % (0.00-10.9); Hematocrit 38.6 VOL% (35.7-47.0); Immature Granulocytes % 0.4 %; Immature Granulocytes Absolute 0.02 #; Lymphocytes # 1.1 10*3/uL (1.4-4.0); Lymphocytes % 20.9 % (21.3-54.2); Mean Corpuscular HGB Conc 29.8 GM/DL (32-36); Mean Corpuscular Volume 105.2 FL (87-102); Mean Platelet Volume 9.9 FL (9.6-12.0); Monocytes % 11.3 % (1.7-12.7); Neutrophils % 59.6 % (38.7-73.9); Platelet Count 237 T/CUMM (130-400); Red Blood Count 3.67 MC/CUMM (3.8-5.5); Red Cell Distribution Width 16.2 % (9.3-17.3); White Blood Count 5.4 T/CUMM (4-12)
[2021-05-21 08:49] LABS: Hemoglobin 11.5 GM/DL (12.0-16.0)
[2021-05-21] MEDS ORDERED: POLYETHYLENE GLYCOL POWDER 17 GM PACK PO SCH (09:00)
[2021-05-21 09:01] LABS: Albumin 2.8 G/DL (3.4-5.0); Bilirubin,Total 0.6 MG/DL (0.20-1.00); Osmolality,Calculated 274.8 MOS/KG (273-304); Potassium 4.4 MMOL/L (3.5-5.1); Total Protein 6.4 G/DL (6.4-8.2)
[2021-05-21] MEDS: MELOXICAM 7.5 MG TABLET PO SCH (10:38)
[2021-05-21] MEDS: ASPIRIN EC 81 MG TABLET PO SCH (10:39)
[2021-05-21] MEDS: SEVELAMER CARBONATE POWDER 2.4 GM PACK PO SCH ×3 (10:39→16:28)
[2021-05-21] MEDS: PANTOPRAZOLE 40 MG TABLET PO SCH (10:40)
[2021-05-21] MEDS: OLANZapine 5 MG TABLET PO SCH ×2 (10:40→21:10)
[2021-05-21] MEDS: PRAZOSIN 1 MG CAPSULE PO SCH ×2 (10:40→21:05)
[2021-05-21] MEDS: carBAMazepine 200 MG TABLET PO SCH ×4 (10:40→21:05)
[2021-05-21] MEDS: LEVOTHYROXINE 25 MCG TABLET PO SCH (10:40)
[2021-05-21] MEDS: LOSARTAN 50 MG TABLET PO SCH (10:40)
[2021-05-21] MEDS: hydroCHLOROthiazide 25 MG TABLET PO SCH (10:41)
[2021-05-21] MEDS: TIMOLOL 0.5% OPH SOLN 5 ML BOTTLE BOTH EYES SCH (10:41)
[2021-05-21] MEDS ORDERED: BISACODYL 10 MG SUPP RECTAL ONE (13:05)
[2021-05-21] MEDS: SIMVASTATIN 20 MG TABLET PO SCH (21:05)
[2021-05-21] MEDS: DOCUSATE SODIUM 100 MG CAPSULE PO SCH (21:05)
[2021-05-21] MEDS: POLYETHYLENE GLYCOL POWDER 17 GM PACK PO SCH (21:06)
[2021-05-21] MEDS: LATANOPROST 0.005% OPH SOLN 2.5 ML BOTTLE BOTH EYES SCH (23:41)
[2021-05-22] MEDS: HEPARIN 5,000 UNIT/1 ML VIAL SUBCUT SCH ×3 (06:11→21:57)
[2021-05-22 06:32] LABS: Basophils # 0.1 10*3/uL (0.0-0.2); Basophils % 1.1 % (0.0-0.8); Eosinophils # 0.4 10*3/uL (0.0-0.87); Eosinophils % 7.3 % (0.00-10.9); Hematocrit 38.2 VOL% (35.7-47.0); Hemoglobin 11.4 GM/DL (12.0-16.0); Immature Granulocytes % 0.4 %; Immature Granulocytes Absolute 0.02 #; Lymphocytes # 1.3 10*3/uL (1.4-4.0); Lymphocytes % 22.5 % (21.3-54.2); Mean Corpuscular HGB Conc 29.8 GM/DL (32-36); Mean Corpuscular Volume 104.7 FL (87-102); Monocytes % 11.1 % (1.7-12.7); Neutrophils % 57.6 % (38.7-73.9); Platelet Count 210 T/CUMM (130-400); Red Blood Count 3.65 MC/CUMM (3.8-5.5); Red Cell Distribution Width 15.8 % (9.3-17.3); White Blood Count 5.6 T/CUMM (4-12)
[2021-05-22 06:45] LABS: Calcium 8.7 MG/DL (8.5-10.1)
[2021-05-22] MEDS ORDERED: MAGNESIUM HYDROXIDE SUSP 30 ML UDCUP PO ONE (10:42)
[2021-05-22] MEDS ORDERED: BUPIVACAINE 0.25% 50 ML VIAL MISC INJ ONE (11:13)
[2021-05-22] MEDS ORDERED: methylPREDNISolone ACETATE 40 MG/1 ML VIAL MISC INJ ONE (11:13)
[2021-05-22] MEDS: SEVELAMER CARBONATE POWDER 2.4 GM PACK PO SCH ×3 (13:22→16:43)
[2021-05-22] MEDS: carBAMazepine 200 MG TABLET PO SCH ×4 (13:23→20:45)
[2021-05-22] MEDS: hydroCHLOROthiazide 25 MG TABLET PO SCH (13:29)
[2021-05-22] MEDS: LEVOTHYROXINE 25 MCG TABLET PO SCH (13:29)
[2021-05-22] MEDS: LOSARTAN 50 MG TABLET PO SCH (13:34)
[2021-05-22] MEDS: MELOXICAM 7.5 MG TABLET PO SCH (13:34)
[2021-05-22] MEDS: PANTOPRAZOLE 40 MG TABLET PO SCH (13:34)
[2021-05-22] MEDS: ASPIRIN EC 81 MG TABLET PO SCH (13:35)
[2021-05-22] MEDS: DOCUSATE SODIUM 100 MG CAPSULE PO SCH ×2 (13:35→20:45)
[2021-05-22] MEDS: OLANZapine 5 MG TABLET PO SCH ×2 (13:35→20:45)
[2021-05-22] MEDS: PRAZOSIN 1 MG CAPSULE PO SCH ×2 (13:35→20:44)
[2021-05-22] MEDS: TIMOLOL 0.5% OPH SOLN 5 ML BOTTLE BOTH EYES SCH (13:36)
[2021-05-22] MEDS: POLYETHYLENE GLYCOL POWDER 17 GM PACK PO SCH ×2 (13:57→20:45)
[2021-05-22] MEDS: MORPHINE 2 MG/1 ML SYRINGE IV PRN (15:45)
[2021-05-22] MEDS ORDERED: ONDANSETRON 4 MG/2 ML VIAL IV PRN (19:52)
[2021-05-22] MEDS ORDERED: ONDANSETRON 4 MG/2 ML VIAL IM PRN (19:52)
[2021-05-22] MEDS: SIMVASTATIN 20 MG TABLET PO SCH (20:44)
[2021-05-22] MEDS: LATANOPROST 0.005% OPH SOLN 2.5 ML BOTTLE BOTH EYES SCH (21:57)
[2021-05-23 05:05] LABS: Basophils # 0.1 10*3/uL (0.0-0.2); Basophils % 1.3 % (0.0-0.8); Eosinophils # 0.3 10*3/uL (0.0-0.87); Eosinophils % 6.9 % (0.00-10.9); Hematocrit 38.8 VOL% (35.7-47.0); Hemoglobin 11.6 GM/DL (12.0-16.0); Immature Granulocytes % 0.4 %; Immature Granulocytes Absolute 0.02 #; Lymphocytes # 1.3 10*3/uL (1.4-4.0); Mean Corpuscular HGB Conc 29.9 GM/DL (32-36); Mean Corpuscular Volume 103.7 FL (87-102); Monocytes % 10.5 % (1.7-12.7); Neutrophils % 52.9 % (38.7-73.9); Platelet Count 192 T/CUMM (130-400); Red Blood Count 3.74 MC/CUMM (3.8-5.5); Red Cell Distribution Width 15.4 % (9.3-17.3); White Blood Count 4.8 T/CUMM (4-12)
[2021-05-23] MEDS: HEPARIN 5,000 UNIT/1 ML VIAL SUBCUT SCH ×2 (05:05→16:25)
[2021-05-23 05:39] LABS: Osmolality,Calculated 267.4 MOS/KG (273-304); Potassium 4.7 MMOL/L (3.5-5.1)
[2021-05-23] MEDS ORDERED: amLODIPine 5 MG TABLET PO SCH (09:00)
[2021-05-23] MEDS: PRAZOSIN 1 MG CAPSULE PO SCH (09:12)
[2021-05-23] MEDS: SEVELAMER CARBONATE POWDER 2.4 GM PACK PO SCH ×2 (09:12→12:15)
[2021-05-23] MEDS: DOCUSATE SODIUM 100 MG CAPSULE PO SCH (09:12)
[2021-05-23] MEDS: ASPIRIN EC 81 MG TABLET PO SCH (09:12)
[2021-05-23] MEDS: MELOXICAM 7.5 MG TABLET PO SCH (09:12)
[2021-05-23] MEDS: POLYETHYLENE GLYCOL POWDER 17 GM PACK PO SCH (09:12)
[2021-05-23] MEDS: carBAMazepine 200 MG TABLET PO SCH ×2 (09:12→12:15)
[2021-05-23] MEDS: OLANZapine 5 MG TABLET PO SCH (09:12)
[2021-05-23] MEDS: LOSARTAN 50 MG TABLET PO SCH (09:12)
[2021-05-23] MEDS: PANTOPRAZOLE 40 MG TABLET PO SCH (09:12)
[2021-05-23] MEDS: LEVOTHYROXINE 25 MCG TABLET PO SCH (09:12)
[2021-05-23] MEDS: hydroCHLOROthiazide 25 MG TABLET PO SCH (09:12)
[2021-05-23] MEDS: TIMOLOL 0.5% OPH SOLN 5 ML BOTTLE BOTH EYES SCH (09:13)
[2021-05-23 16:31] VITALS: BP 117/46
== END 2021-05-23 16:28 | disposition home health service (06) | DRG 947 ==
LOC: EDUNIT# → EDBD → N.EDINP 18:24 → N.ED 18:24 → N.TELEN 23:01 → SUATTDRO 05-21 09:02 → N.3E 05-22 19:29
PROVIDERS: ADMIT Internal Medicine; ATTEND Internal Medicine

== ENCOUNTER 2022-03-05 07:04 | Inpatient (IN) ==
[2022-03-05] MEDS ORDERED: hydrALAZINE 20 MG/1 ML VIAL IV STA (07:23)
[2022-03-05] MEDS ORDERED: traMADol 50 MG TABLET PO STA (08:02)
[2022-03-05] MEDS ORDERED: cloNIDine 0.1 MG TABLET PO STA (08:05)
[2022-03-05 09:27] LABS: Basophils # 0.1 10*3/uL (0.0-0.2); Basophils % 0.6 % (0.0-0.8); Eosinophils # 0.2 10*3/uL (0.0-0.87); Eosinophils % 1.5 % (0.00-10.9); Hematocrit 34.5 VOL% (35.7-47.0); Hemoglobin 10.6 GM/DL (12.0-16.0); Immature Granulocytes % 0.8 %; Lymphocytes # 0.8 10*3/uL (1.4-4.0); Lymphocytes % 6.3 % (21.3-54.2); Mean Corpuscular HGB Conc 30.7 GM/DL (32-36); Mean Corpuscular Volume 102.7 FL (87-102); Mean Platelet Volume 8.9 FL (9.6-12.0); Monocytes # 0.9 10*3/uL (0.11-0.8); Monocytes % 7.3 % (1.7-12.7); Neutrophils % 83.5 % (38.7-73.9); Platelet Count 220 T/CUMM (130-400); Red Blood Count 3.36 MC/CUMM (3.8-5.5); Red Cell Distribution Width 14.6 % (9.3-17.3); White Blood Count 12.6 T/CUMM (4-12)
[2022-03-05 09:46] LABS: Albumin 3.6 G/DL (3.4-5.0); Bilirubin,Total 0.4 MG/DL (0.20-1.00); Calcium 9.7 MG/DL (8.5-10.1); Osmolality,Calculated 269.4 MOS/KG (273-304); Potassium 5.8 MMOL/L (3.5-5.1); Total Protein 6.4 G/DL (6.4-8.2)
[2022-03-05] MEDS ORDERED: cefTRIAXone 1,000 MG in SODIUM CHLORIDE 0.9% 100 ML IV STA (11:15)
[2022-03-05] MEDS ORDERED: SIMETHICONE CHEW 125 MG TABLET PO PRN (11:36)
[2022-03-05] MEDS ORDERED: hydrALAZINE 20 MG/1 ML VIAL IV PRN (11:36)
[2022-03-05] MEDS ORDERED: DOCUSATE SODIUM 100 MG CAPSULE PO PRN (11:36)
[2022-03-05] MEDS ORDERED: GLUCAGON 1 MG VIAL IM PRN (11:36)
[2022-03-05] MEDS ORDERED: ONDANSETRON 4 MG/2 ML VIAL IV PRN (11:36)
[2022-03-05] MEDS ORDERED: LACTULOSE 20 GM/30 ML UDCUP PO PRN (11:36)
[2022-03-05] MEDS ORDERED: DEXTROSE 10% 250 ML BAG IV PRN (11:44)
[2022-03-05] MEDS: AZITHROMYCIN INJ 500 MG in SODIUM CHLORIDE 0.9% 250 ML IV SCH (12:17)
[2022-03-05] MEDS ORDERED: SODIUM POLYSTYRENE SULFATE 15 GM/60 ML BOTTLE PO ONE ×2 (13:18→18:44)
[2022-03-05] MEDS: ALBUTEROL/IPRATROPIUM 3 ML NEB RESP TX SCH ×2 (14:00→19:23)
[2022-03-05] MEDS: SEVELAMER CARBONATE 800 MG TABLET PO SCH (17:11)
[2022-03-05] MEDS: carBAMazepine 200 MG TABLET PO SCH ×2 (17:11→22:14)
[2022-03-05] MEDS: ACETAMINOPHEN 325 MG TABLET PO PRN (18:29)
[2022-03-05 18:49] LABS: Calcium 8.7 MG/DL (8.5-10.1); Osmolality,Calculated 273.2 MOS/KG (273-304)
[2022-03-05] MEDS ORDERED: metOLazone 5 MG TABLET PO ONE (19:03)
[2022-03-05] MEDS ORDERED: FUROSEMIDE 100 MG/10 ML VIAL IV ONE (19:04)
[2022-03-05] MEDS ORDERED: INSULIN REGULAR 100 UNIT/ML SUBCUT ONE (19:06)
[2022-03-05] MEDS ORDERED: DEXTROSE 10% 250 ML BAG IV ONE (19:30)
[2022-03-05] MEDS: PRAZOSIN 1 MG CAPSULE PO SCH (22:14)
[2022-03-05] MEDS: SIMVASTATIN 20 MG TABLET PO SCH (22:15)
[2022-03-05] MEDS: OLANZapine 5 MG TABLET PO SCH (22:15)
[2022-03-05] MEDS: HEPARIN 5,000 UNIT/1 ML VIAL SUBCUT SCH (22:16)
[2022-03-05] MEDS: LATANOPROST 0.005% OPH SOLN 2.5 ML BOTTLE BOTH EYES SCH (23:09)
[2022-03-06 01:20] LABS: Basophils # 0.1 10*3/uL (0.0-0.2); Basophils % 0.7 % (0.0-0.8); Eosinophils # 0.3 10*3/uL (0.0-0.87); Eosinophils % 3.9 % (0.00-10.9); Hematocrit 30.2 VOL% (35.7-47.0); Hemoglobin 9.1 GM/DL (12.0-16.0); Immature Granulocytes % 0.3 %; Immature Granulocytes Absolute 0.02 #; Lymphocytes # 1.4 10*3/uL (1.4-4.0); Lymphocytes % 19.1 % (21.3-54.2); Mean Corpuscular HGB Conc 30.1 GM/DL (32-36); Mean Corpuscular Volume 103.8 FL (87-102); Mean Platelet Volume 9.5 FL (9.6-12.0); Monocytes # 0.9 10*3/uL (0.11-0.8); Monocytes % 12.2 % (1.7-12.7); Neutrophils % 63.8 % (38.7-73.9); Platelet Count 213 T/CUMM (130-400); Red Blood Count 2.91 MC/CUMM (3.8-5.5); Red Cell Distribution Width 14.6 % (9.3-17.3); White Blood Count 7.2 T/CUMM (4-12)
[2022-03-06 01:48] LABS: Albumin 2.9 G/DL (3.4-5.0); Bilirubin,Total 0.4 MG/DL (0.20-1.00); Calcium 9.4 MG/DL (8.5-10.1); Osmolality,Calculated 273.1 MOS/KG (273-304); Potassium 5.5 MMOL/L (3.5-5.1); Risk Ratio 1.83; Thyroid Stimulating Hormone 5.59 uIU/ml (0.358-3.74); Total Protein 5.7 G/DL (6.4-8.2)
[2022-03-06] MEDS ORDERED: LEVOTHYROXINE 25 MCG TABLET PO SCH (06:30)
[2022-03-06] MEDS: ALBUTEROL/IPRATROPIUM 3 ML NEB RESP TX SCH ×4 (07:30→19:20)
[2022-03-06] MEDS ORDERED: hydroCHLOROthiazide 25 MG TABLET PO SCH (09:00)
[2022-03-06] MEDS ORDERED: MELOXICAM 7.5 MG TABLET PO SCH (09:00)
[2022-03-06] MEDS ORDERED: LOSARTAN 50 MG TABLET PO SCH (09:00)
[2022-03-06] MEDS: HEPARIN 5,000 UNIT/1 ML VIAL SUBCUT SCH ×2 (09:43→21:19)
[2022-03-06 09:51] LABS: Free T4 (Free Thyroxine) 0.62 NG/DL (0.76-1.46)
[2022-03-06] MEDS ORDERED: MINERAL OIL ENEMA 133 ML BOTTLE RECTAL ONE (11:47)
[2022-03-06] MEDS ORDERED: BISACODYL 10 MG SUPP RECTAL ONE (11:48)
[2022-03-06] MEDS ORDERED: BISACODYL 5 MG TABLET PO PRN (12:16)
[2022-03-06 12:48] LABS: Folate 9.8 NG/ML (5.38-24.0)
[2022-03-06] MEDS: TIMOLOL 0.5% OPH SOLN 5 ML BOTTLE BOTH EYES SCH (14:52)
[2022-03-06] MEDS: carBAMazepine 200 MG TABLET PO SCH ×4 (14:52→21:18)
[2022-03-06] MEDS: SODIUM ZIRCONIUM CYCLOSILICATE 10 GM PACK PO SCH (16:52)
[2022-03-06] MEDS: ASPIRIN EC 81 MG TABLET PO SCH (16:52)
[2022-03-06] MEDS: SEVELAMER CARBONATE 800 MG TABLET PO SCH ×2 (16:52→17:23)
[2022-03-06] MEDS: PRAZOSIN 1 MG CAPSULE PO SCH ×2 (16:57→21:18)
[2022-03-06] MEDS: PANTOPRAZOLE 40 MG TABLET PO SCH (16:58)
[2022-03-06] MEDS: OLANZapine 5 MG TABLET PO SCH ×2 (16:58→21:18)
[2022-03-06] MEDS: hydrALAZINE 25 MG TABLET PO SCH ×2 (17:02→21:39)
[2022-03-06] MEDS: cefTRIAXone 1,000 MG in SODIUM CHLORIDE 0.9% 100 ML IV SCH (17:20)
[2022-03-06] MEDS: AZITHROMYCIN INJ 500 MG in SODIUM CHLORIDE 0.9% 250 ML IV SCH (17:20)
[2022-03-06] MEDS: ACETAMINOPHEN 325 MG TABLET PO PRN (17:53)
[2022-03-06] MEDS: LATANOPROST 0.005% OPH SOLN 2.5 ML BOTTLE BOTH EYES SCH (21:18)
[2022-03-06] MEDS: SIMVASTATIN 20 MG TABLET PO SCH (21:18)
[2022-03-07 06:04] LABS: Basophils % 0.6 % (0.0-0.8); Eosinophils # 0.3 10*3/uL (0.0-0.87); Eosinophils % 4.5 % (0.00-10.9); Hematocrit 29.2 VOL% (35.7-47.0); Hemoglobin 8.6 GM/DL (12.0-16.0); Immature Granulocytes % 0.3 %; Immature Granulocytes Absolute 0.02 #; Lymphocytes # 0.8 10*3/uL (1.4-4.0); Lymphocytes % 12.8 % (21.3-54.2); Mean Corpuscular HGB Conc 29.5 GM/DL (32-36); Mean Corpuscular Volume 105.8 FL (87-102); Mean Platelet Volume 9.6 FL (9.6-12.0); Monocytes # 0.8 10*3/uL (0.11-0.8); Monocytes % 12.5 % (1.7-12.7); Neutrophils % 69.3 % (38.7-73.9); Platelet Count 200 T/CUMM (130-400); Red Blood Count 2.76 MC/CUMM (3.8-5.5); Red Cell Distribution Width 14.9 % (9.3-17.3); White Blood Count 6.2 T/CUMM (4-12)
[2022-03-07 06:22] LABS: Calcium 8.9 MG/DL (8.5-10.1); Osmolality,Calculated 278.5 MOS/KG (273-304); Potassium 4.1 MMOL/L (3.5-5.1)
[2022-03-07] MEDS ORDERED: LEVOTHYROXINE 25 MCG TABLET PO SCH (06:30)
[2022-03-07] MEDS: ALBUTEROL/IPRATROPIUM 3 ML NEB RESP TX SCH ×3 (07:25→13:00)
[2022-03-07] MEDS ORDERED: POLYETHYLENE GLYCOL POWDER 17 GM PACK PO PRN (09:03)
[2022-03-07] MEDS: OLANZapine 5 MG TABLET PO SCH (09:16)
[2022-03-07] MEDS: HEPARIN 5,000 UNIT/1 ML VIAL SUBCUT SCH (09:16)
[2022-03-07] MEDS: PRAZOSIN 1 MG CAPSULE PO SCH (09:17)
[2022-03-07] MEDS: PANTOPRAZOLE 40 MG TABLET PO SCH (09:18)
[2022-03-07] MEDS: hydrALAZINE 25 MG TABLET PO SCH (09:18)
[2022-03-07] MEDS: ASPIRIN EC 81 MG TABLET PO SCH (09:18)
[2022-03-07] MEDS: SEVELAMER CARBONATE 800 MG TABLET PO SCH ×2 (09:18→13:15)
[2022-03-07] MEDS: carBAMazepine 200 MG TABLET PO SCH ×2 (09:18→14:23)
[2022-03-07] MEDS: SODIUM ZIRCONIUM CYCLOSILICATE 10 GM PACK PO SCH (09:45)
[2022-03-07] MEDS: TIMOLOL 0.5% OPH SOLN 5 ML BOTTLE BOTH EYES SCH (09:46)
[2022-03-07] MEDS ORDERED: METHYLNALTREXONE 12 MG/0.6 ML VIAL SUBCUT ONE (10:27)
[2022-03-07 11:58] VITALS: BP 162/64
[2022-03-07] MEDS: AZITHROMYCIN INJ 500 MG in SODIUM CHLORIDE 0.9% 250 ML IV SCH (13:17)
[2022-03-07] MEDS: cefTRIAXone 1,000 MG in SODIUM CHLORIDE 0.9% 100 ML IV SCH (13:17)
== END 2022-03-07 16:05 | disposition home or self-care (01) | DRG 177 ==
LOC: N.ED 07:04 → N.EDINP 11:36 → SUATTDRO 11:36 → N.EDINP 14:35 → N.5E 15:29
PROVIDERS: ADMIT Internal Medicine; ATTEND Internal Medicine

== ENCOUNTER 2022-06-03 11:22 | Inpatient (IN) ==
[2022-06-03 12:32] LABS: Basophils # 0.1 10*3/uL (0.0-0.2); Basophils % 0.4 % (0.0-0.8); Hematocrit 38.3 VOL% (35.7-47.0); Hemoglobin 11.7 GM/DL (12.0-16.0); Immature Granulocytes % 0.4 %; Immature Granulocytes Absolute 0.06 #; Lymphocytes # 0.6 10*3/uL (1.4-4.0); Lymphocytes % 4.6 % (21.3-54.2); Mean Corpuscular HGB Conc 30.5 GM/DL (32-36); Mean Corpuscular Volume 104.4 FL (87-102); Mean Platelet Volume 9.4 FL (9.6-12.0); Monocytes # 1.7 10*3/uL (0.11-0.8); Monocytes % 11.8 % (1.7-12.7); Neutrophils % 82.8 % (38.7-73.9); Platelet Count 285 T/CUMM (130-400); Red Blood Count 3.67 MC/CUMM (3.8-5.5); Red Cell Distribution Width 15.1 % (9.3-17.3)
[2022-06-03] MEDS: SODIUM CHLORIDE 0.9% 1,000 ML IV SCH (12:39)
[2022-06-03 12:42] LABS: PT Patient Result 10.8 SECS (10.1-12.1); Partial Thromboplastin Time 30.8 SECS (23.7-32.9)
[2022-06-03 13:01] LABS: Albumin 3.9 G/DL (3.4-5.0); Bilirubin,Total 0.6 MG/DL (0.20-1.00); Calcium 10.2 MG/DL (8.5-10.1); Osmolality,Calculated 272.9 MOS/KG (273-304); Total Protein 7.3 G/DL (6.4-8.2)
[2022-06-03 13:02] LABS: Lymphocytes 3 % (20-55); Total Cells Counted 100
[2022-06-03 13:03] LABS: Anisocytosis 1+; Macrocytosis 1+
[2022-06-03 13:05] LABS: Platelet Estimate Adequate
[2022-06-03 13:21] LABS: Potassium 7.3 MMOL/L (3.5-5.1)
[2022-06-03] MEDS ORDERED: DEXTROSE 50% 25 GM/50 ML VIAL IV STA (13:23)
[2022-06-03] MEDS ORDERED: SODIUM BICARBONATE 50 MEQ/50 ML VIAL IV STA (13:23)
[2022-06-03] MEDS ORDERED: INSULIN REGULAR 100 UNIT/ML IV STA (13:23)
[2022-06-03] MEDS ORDERED: CALCIUM CHLORIDE 1,000 MG/10 ML SYRINGE IV STA (13:23)
[2022-06-03] MEDS ORDERED: DEXTROSE 50% 25 GM/50 ML SYRINGE IV ONE (13:57)
[2022-06-03] MEDS ORDERED: ALBUTEROL 2.5 MG/3 ML NEB RESP TX PRN (15:14)
[2022-06-03] MEDS: SODIUM ZIRCONIUM CYCLOSILICATE 10 GM PACK PO SCH ×2 (19:37→21:23)
[2022-06-03] MEDS: ENOXAPARIN 30 MG/0.3 ML SYRINGE SUBCUT SCH (20:50)
[2022-06-04 05:07] LABS: Calcium 9.2 MG/DL (8.5-10.1); Osmolality,Calculated 279.7 MOS/KG (273-304); Potassium 5.6 MMOL/L (3.5-5.1)
[2022-06-04] MEDS ORDERED: LEVOTHYROXINE 25 MCG TABLET PO SCH (09:00)
[2022-06-04] MEDS: LOSARTAN 50 MG TABLET PO SCH (09:02)
[2022-06-04] MEDS: SODIUM ZIRCONIUM CYCLOSILICATE 10 GM PACK PO SCH ×3 (09:02→20:32)
[2022-06-04] MEDS: PRAZOSIN 1 MG CAPSULE PO SCH ×2 (09:03→20:31)
[2022-06-04] MEDS: TIMOLOL 0.5% OPH SOLN 5 ML BOTTLE BOTH EYES SCH (09:03)
[2022-06-04] MEDS: OLANZapine 5 MG TABLET PO SCH ×2 (09:03→20:31)
[2022-06-04] MEDS: PANTOPRAZOLE 40 MG TABLET PO SCH (09:03)
[2022-06-04] MEDS: SODIUM CHLORIDE 0.9% 1,000 ML IV SCH ×2 (12:25→14:30)
[2022-06-04] MEDS: SEVELAMER CARBONATE 800 MG TABLET PO SCH ×2 (14:10→16:56)
[2022-06-04] MEDS ORDERED: ZINC OXIDE PASTE 113 GM TUBE TOP PRN (14:41)
[2022-06-04] MEDS: ENOXAPARIN 30 MG/0.3 ML SYRINGE SUBCUT SCH (15:54)
[2022-06-05 05:23] LABS: Calcium 8.8 MG/DL (8.5-10.1); Osmolality,Calculated 277.5 MOS/KG (273-304); Potassium 3.5 MMOL/L (3.5-5.1)
[2022-06-05] MEDS: LEVOTHYROXINE 25 MCG TABLET PO SCH (06:28)
[2022-06-05] MEDS: LATANOPROST 0.005% OPH SOLN 2.5 ML BOTTLE BOTH EYES SCH ×2 (06:28→21:57)
[2022-06-05] MEDS: SEVELAMER CARBONATE 800 MG TABLET PO SCH ×3 (09:30→17:11)
[2022-06-05] MEDS: OLANZapine 5 MG TABLET PO SCH ×2 (09:30→21:57)
[2022-06-05] MEDS: PRAZOSIN 1 MG CAPSULE PO SCH ×2 (09:31→21:57)
[2022-06-05] MEDS: LOSARTAN 50 MG TABLET PO SCH (09:31)
[2022-06-05] MEDS: PANTOPRAZOLE 40 MG TABLET PO SCH (09:31)
[2022-06-05] MEDS: SODIUM ZIRCONIUM CYCLOSILICATE 10 GM PACK PO SCH (09:32)
[2022-06-05] MEDS: TIMOLOL 0.5% OPH SOLN 5 ML BOTTLE BOTH EYES SCH (11:14)
[2022-06-05] MEDS: ACETAMINOPHEN 325 MG TABLET PO PRN (11:23)
[2022-06-05] MEDS ORDERED: LACTULOSE 20 GM/30 ML UDCUP PO PRN (11:46)
[2022-06-05] MEDS ORDERED: POLYETHYLENE GLYCOL POWDER 17 GM PACK PO SCH (12:00)
[2022-06-05] MEDS: DOCUSATE SODIUM 100 MG CAPSULE PO SCH ×2 (14:21→21:57)
[2022-06-05] MEDS: POLYETHYLENE GLYCOL POWDER 17 GM PACK PO SCH ×2 (14:21→21:57)
[2022-06-05] MEDS: ONDANSETRON 4 MG/2 ML VIAL IV PRN (21:05)
[2022-06-05] MEDS: ENOXAPARIN 30 MG/0.3 ML SYRINGE SUBCUT SCH (21:58)
[2022-06-05] MEDS: SODIUM CHLORIDE 0.9% 1,000 ML IV SCH (23:27)
[2022-06-06] MEDS: ONDANSETRON 4 MG/2 ML VIAL IV PRN ×2 (03:38→15:34)
[2022-06-06 05:09] LABS: Basophils % 0.5 % (0.0-0.8); Eosinophils # 0.3 10*3/uL (0.0-0.87); Eosinophils % 3.2 % (0.00-10.9); Hematocrit 32.9 VOL% (35.7-47.0); Hemoglobin 10.2 GM/DL (12.0-16.0); Immature Granulocytes % 0.5 %; Immature Granulocytes Absolute 0.04 #; Lymphocytes % 12.4 % (21.3-54.2); Mean Corpuscular Volume 102.5 FL (87-102); Mean Platelet Volume 9.3 FL (9.6-12.0); Monocytes # 0.9 10*3/uL (0.11-0.8); Monocytes % 11.4 % (1.7-12.7); Red Blood Count 3.21 MC/CUMM (3.8-5.5); Red Cell Distribution Width 14.9 % (9.3-17.3); White Blood Count 8.1 T/CUMM (4-12)
[2022-06-06 05:11] LABS: Platelet Count 203 T/CUMM (130-400)
[2022-06-06 05:22] LABS: Calcium 9.4 MG/DL (8.5-10.1); Osmolality,Calculated 275.7 MOS/KG (273-304); Potassium 3.1 MMOL/L (3.5-5.1)
[2022-06-06] MEDS: LEVOTHYROXINE 25 MCG TABLET PO SCH (05:48)
[2022-06-06] MEDS: SODIUM CHLORIDE 0.9% 1,000 ML IV SCH (05:48)
[2022-06-06] MEDS: SEVELAMER CARBONATE 800 MG TABLET PO SCH ×3 (10:42→17:37)
[2022-06-06] MEDS: POLYETHYLENE GLYCOL POWDER 17 GM PACK PO SCH ×2 (10:42→22:04)
[2022-06-06] MEDS: PRAZOSIN 1 MG CAPSULE PO SCH ×2 (10:42→22:05)
[2022-06-06] MEDS: DOCUSATE SODIUM 100 MG CAPSULE PO SCH ×2 (10:42→22:04)
[2022-06-06] MEDS: OLANZapine 5 MG TABLET PO SCH ×2 (10:43→23:20)
[2022-06-06] MEDS: TIMOLOL 0.5% OPH SOLN 5 ML BOTTLE BOTH EYES SCH (10:43)
[2022-06-06] MEDS: LOSARTAN 50 MG TABLET PO SCH (11:42)
[2022-06-06] MEDS: PANTOPRAZOLE 40 MG TABLET PO SCH (11:42)
[2022-06-06] MEDS ORDERED: MINERAL OIL ENEMA 133 ML BOTTLE RECTAL ONE (13:30)
[2022-06-06] MEDS: ACETAMINOPHEN 325 MG TABLET PO PRN (18:18)
[2022-06-06] MEDS ORDERED: BISACODYL 10 MG SUPP RECTAL ONE (21:00)
[2022-06-06] MEDS: ENOXAPARIN 30 MG/0.3 ML SYRINGE SUBCUT SCH (22:05)
[2022-06-06] MEDS: LATANOPROST 0.005% OPH SOLN 2.5 ML BOTTLE BOTH EYES SCH (22:11)
[2022-06-07] MEDS: ACETAMINOPHEN 325 MG TABLET PO PRN (06:31)
[2022-06-07] MEDS: LEVOTHYROXINE 25 MCG TABLET PO SCH (06:32)
[2022-06-07 06:56] LABS: Basophils # 0.1 10*3/uL (0.0-0.2); Basophils % 0.9 % (0.0-0.8); Eosinophils # 0.4 10*3/uL (0.0-0.87); Eosinophils % 6.3 % (0.00-10.9); Hematocrit 32.4 VOL% (35.7-47.0); Hemoglobin 9.8 GM/DL (12.0-16.0); Immature Granulocytes % 0.3 %; Immature Granulocytes Absolute 0.02 #; Lymphocytes # 1.3 10*3/uL (1.4-4.0); Lymphocytes % 18.9 % (21.3-54.2); Mean Corpuscular HGB Conc 30.2 GM/DL (32-36); Mean Corpuscular Volume 104.5 FL (87-102); Mean Platelet Volume 10.7 FL (9.6-12.0); Monocytes # 0.9 10*3/uL (0.11-0.8); Neutrophils % 60.6 % (38.7-73.9); Platelet Count 171 T/CUMM (130-400); Red Cell Distribution Width 15.3 % (9.3-17.3); White Blood Count 6.8 T/CUMM (4-12)
[2022-06-07 07:12] LABS: Calcium 9.2 MG/DL (8.5-10.1); Osmolality,Calculated 275.7 MOS/KG (273-304); Potassium 3.8 MMOL/L (3.5-5.1)
[2022-06-07] MEDS: SEVELAMER CARBONATE 800 MG TABLET PO SCH ×3 (08:52→17:10)
[2022-06-07] MEDS: PANTOPRAZOLE 40 MG TABLET PO SCH (08:52)
[2022-06-07] MEDS: PRAZOSIN 1 MG CAPSULE PO SCH ×2 (08:52→20:59)
[2022-06-07] MEDS: OLANZapine 5 MG TABLET PO SCH ×2 (08:52→20:59)
[2022-06-07] MEDS: LOSARTAN 50 MG TABLET PO SCH (08:52)
[2022-06-07] MEDS: DOCUSATE SODIUM 100 MG CAPSULE PO SCH (08:52)
[2022-06-07] MEDS: POLYETHYLENE GLYCOL POWDER 17 GM PACK PO SCH ×2 (08:53→20:58)
[2022-06-07] MEDS: TIMOLOL 0.5% OPH SOLN 5 ML BOTTLE BOTH EYES SCH (11:56)
[2022-06-07] MEDS ORDERED: OLANZapine 5 MG TABLET PO SCH (13:00)
[2022-06-07] MEDS: amLODIPine 2.5 MG TABLET PO SCH (13:12)
[2022-06-07] MEDS ORDERED: POLYETHYLENE GLYCOL POWDER 255 GM BOTTLE PO ONE (15:00)
[2022-06-07] MEDS: ENOXAPARIN 30 MG/0.3 ML SYRINGE SUBCUT SCH (20:58)
[2022-06-07] MEDS: ONDANSETRON 4 MG/2 ML VIAL IV PRN (20:59)
[2022-06-07] MEDS ORDERED: OLANZapine 2.5 MG TABLET PO SCH (21:00)
[2022-06-07] MEDS: LATANOPROST 0.005% OPH SOLN 2.5 ML BOTTLE BOTH EYES SCH (21:02)
[2022-06-08 05:09] LABS: Basophils % 0.3 % (0.0-0.8); Eosinophils % 0.2 % (0.00-10.9); Hematocrit 35.8 VOL% (35.7-47.0); Hemoglobin 10.9 GM/DL (12.0-16.0); Immature Granulocytes % 0.5 %; Immature Granulocytes Absolute 0.06 #; Lymphocytes # 0.5 10*3/uL (1.4-4.0); Lymphocytes % 4.4 % (21.3-54.2); Mean Corpuscular HGB Conc 30.4 GM/DL (32-36); Mean Corpuscular Volume 105.3 FL (87-102); Mean Platelet Volume 9.8 FL (9.6-12.0); Monocytes # 0.8 10*3/uL (0.11-0.8); Monocytes % 6.8 % (1.7-12.7); Neutrophils % 87.8 % (38.7-73.9); Platelet Count 191 T/CUMM (130-400); Red Cell Distribution Width 15.2 % (9.3-17.3); White Blood Count 11.8 T/CUMM (4-12)
[2022-06-08 05:42] LABS: Lymphocytes 2 % (20-55); Platelet Estimate Adequate; Total Cells Counted 100
[2022-06-08 05:49] LABS: Calcium 9.6 MG/DL (8.5-10.1); Osmolality,Calculated 260.2 MOS/KG (273-304); Potassium 3.8 MMOL/L (3.5-5.1)
[2022-06-08] MEDS ORDERED: LEVOTHYROXINE 25 MCG TABLET PO SCH (06:30)
[2022-06-08] MEDS ORDERED: amLODIPine 10 MG TABLET PO ONE (09:28)
[2022-06-08] MEDS: LOSARTAN 50 MG TABLET PO SCH (09:43)
[2022-06-08] MEDS: PANTOPRAZOLE 40 MG TABLET PO SCH (09:43)
[2022-06-08] MEDS: PRAZOSIN 1 MG CAPSULE PO SCH (09:43)
[2022-06-08] MEDS: SEVELAMER CARBONATE 800 MG TABLET PO SCH ×3 (09:43→16:40)
[2022-06-08] MEDS: TIMOLOL 0.5% OPH SOLN 5 ML BOTTLE BOTH EYES SCH (09:43)
[2022-06-08] MEDS: OLANZapine 5 MG TABLET PO SCH (09:43)
[2022-06-08] MEDS: POLYETHYLENE GLYCOL POWDER 17 GM PACK PO SCH (09:47)
[2022-06-08] MEDS: amLODIPine 2.5 MG TABLET PO SCH (10:20)
[2022-06-08] MEDS ORDERED: LINACLOTIDE 145 MCG CAPSULE PO SCH (11:00)
[2022-06-08] MEDS ORDERED: amLODIPine 10 MG TABLET PO SCH (11:00)
[2022-06-08] MEDS: ONDANSETRON 4 MG/2 ML VIAL IV PRN (14:25)
[2022-06-08 16:26] VITALS: BP 151/64
== END 2022-06-08 17:45 | disposition home health service (06) | DRG 640 ==
LOC: N.ED 11:22 → SUATTDRO 13:46 → N.EDINP 13:46 → N.CC 15:45 → N.5E 06-04 19:37
PROVIDERS: ADMIT Internal Medicine; ATTEND Hospitalist

== ENCOUNTER 2022-08-06 17:35 | Inpatient (IN) ==
[2022-08-06] MEDS ORDERED: HYDROmorphone 1 MG/1 ML SYRINGE IV STA (18:16)
[2022-08-06] MEDS ORDERED: ONDANSETRON 4 MG/2 ML VIAL IV STA (18:16)
[2022-08-06 18:39] LABS: Basophils % 0.5 % (0.0-0.8); Eosinophils # 0.1 10*3/uL (0.0-0.87); Eosinophils % 0.7 % (0.00-10.9); Hematocrit 43.1 VOL% (35.7-47.0); Hemoglobin 13.3 GM/DL (12.0-16.0); Immature Granulocytes % 0.3 %; Immature Granulocytes Absolute 0.03 #; Lymphocytes # 0.7 10*3/uL (1.4-4.0); Lymphocytes % 8.3 % (21.3-54.2); Mean Corpuscular HGB Conc 30.9 GM/DL (32-36); Mean Corpuscular Volume 98.2 FL (87-102); Mean Platelet Volume 10.3 FL (9.6-12.0); Monocytes # 0.8 10*3/uL (0.11-0.8); Monocytes % 9.7 % (1.7-12.7); Neutrophils % 80.5 % (38.7-73.9); Platelet Count 189 T/CUMM (130-400); Red Blood Count 4.39 MC/CUMM (3.8-5.5); Red Cell Distribution Width 14.6 % (9.3-17.3); White Blood Count 8.7 T/CUMM (4-12)
[2022-08-06 18:41] LABS: Alanine Aminotransferase 25 U/L (13-56); Albumin 3.9 G/DL (3.4-5.0); Alkaline Phosphatase 265 U/L (45-117); Aspartate Amino Transferase 41 U/L (0-37); Blood Urea Nitrogen 101 MG/DL (7-18); Calcium 9.9 MG/DL (8.5-10.1); Carbon Dioxide 23 MMOL/L (21-32); Chloride 95 MMOL/L (98-107); Glucose 122 MG/DL (74-106); Osmolality,Calculated 290.9 MOS/KG (273-304); Sodium 129 MMOL/L (136-145); Total Protein 7.5 G/DL (6.4-8.2)
[2022-08-06 18:49] LABS: Potassium 7.1 MMOL/L (3.5-5.1)
[2022-08-06] MEDS ORDERED: INSULIN REGULAR 10 UNIT, CALCIUM GLUCONATE 1,000 MG in DEXTROSE 10% 250 ML IV ONE (18:50)
[2022-08-06 19:21] LABS: PT Patient Result 10.8 SECS (10.1-12.1)
[2022-08-06] MEDS ORDERED: SODIUM POLYSTYRENE SULFATE 15 GM/60 ML BOTTLE PO STA (20:31)
[2022-08-06] MEDS ORDERED: ONDANSETRON 4 MG/2 ML VIAL IV PRN (21:05)
[2022-08-06] MEDS ORDERED: ACETAMINOPHEN 325 MG TABLET PO PRN (21:05)
[2022-08-06] MEDS ORDERED: SIMETHICONE CHEW 125 MG TABLET PO PRN (21:05)
[2022-08-06] MEDS ORDERED: POLYETHYLENE GLYCOL POWDER 17 GM PACK PO SCH (21:16)
[2022-08-06] MEDS ORDERED: PRAZOSIN 1 MG CAPSULE PO SCH (21:30)
[2022-08-06] MEDS ORDERED: OLANZapine 5 MG TABLET PO SCH (21:30)
[2022-08-06] MEDS ORDERED: HEPARIN 5,000 UNIT/1 ML VIAL SUBCUT SCH (21:30)
[2022-08-07] MEDS ORDERED: SODIUM POLYSTYRENE SULFATE 15 GM/60 ML BOTTLE PO STA ×2 (00:22→07:12)
[2022-08-07] MEDS: POLYETHYLENE GLYCOL POWDER 17 GM PACK PO SCH ×3 (02:00→20:55)
[2022-08-07] MEDS: PRAZOSIN 1 MG CAPSULE PO SCH ×3 (02:01→20:55)
[2022-08-07] MEDS: OLANZapine 5 MG TABLET PO SCH ×3 (02:01→20:54)
[2022-08-07] MEDS: HEPARIN 5,000 UNIT/1 ML VIAL SUBCUT SCH ×2 (02:05→15:52)
[2022-08-07] MEDS: LEVOTHYROXINE 25 MCG TABLET PO SCH (06:08)
[2022-08-07 06:44] LABS: Basophils % 0.5 % (0.0-0.8); Eosinophils # 0.1 10*3/uL (0.0-0.87); Eosinophils % 1.6 % (0.00-10.9); Hematocrit 34.2 VOL% (35.7-47.0); Hemoglobin 10.4 GM/DL (12.0-16.0); Immature Granulocytes Absolute 0.16 #; Lymphocytes # 0.8 10*3/uL (1.4-4.0); Lymphocytes % 10.1 % (21.3-54.2); Mean Corpuscular HGB Conc 30.4 GM/DL (32-36); Mean Corpuscular Volume 101.2 FL (87-102); Mean Platelet Volume 10.1 FL (9.6-12.0); Monocytes # 0.8 10*3/uL (0.11-0.8); Monocytes % 10.2 % (1.7-12.7); Neutrophils % 75.6 % (38.7-73.9); Platelet Count 204 T/CUMM (130-400); Red Blood Count 3.38 MC/CUMM (3.8-5.5); Red Cell Distribution Width 14.7 % (9.3-17.3); White Blood Count 8.1 T/CUMM (4-12)
[2022-08-07 07:02] LABS: Calcium 9.7 MG/DL (8.5-10.1); Osmolality,Calculated 298.2 MOS/KG (273-304)
[2022-08-07 07:05] LABS: Potassium 7.2 MMOL/L (3.5-5.1)
[2022-08-07] MEDS ORDERED: SODIUM POLYSTYRENE SULFATE 15 GM/60 ML BOTTLE PO ONE (07:10)
[2022-08-07] MEDS: SEVELAMER CARBONATE 800 MG TABLET PO SCH ×3 (08:35→17:28)
[2022-08-07] MEDS: LINACLOTIDE 145 MCG CAPSULE PO SCH (08:35)
[2022-08-07] MEDS: PANTOPRAZOLE 40 MG TABLET PO SCH (09:25)
[2022-08-07] MEDS: ASPIRIN EC 81 MG TABLET PO SCH (09:25)
[2022-08-07] MEDS: BISACODYL 5 MG TABLET PO SCH (09:25)
[2022-08-07] MEDS: carBAMazepine 200 MG TABLET PO SCH ×4 (09:25→20:55)
[2022-08-07] MEDS: LOSARTAN 50 MG TABLET PO SCH (09:25)
[2022-08-07] MEDS: MELOXICAM 7.5 MG TABLET PO SCH (09:25)
[2022-08-07] MEDS: amLODIPine 10 MG TABLET PO SCH (09:26)
[2022-08-07] MEDS ORDERED: TUBERCULIN SKIN TEST 0.1 ML SYRINGE INTRADERM ONE (16:11)
[2022-08-07] MEDS: LATANOPROST 0.005% OPH SOLN 2.5 ML BOTTLE BOTH EYES SCH (20:54)
[2022-08-07] MEDS: SIMVASTATIN 20 MG TABLET PO SCH (20:55)
[2022-08-08] MEDS: HEPARIN 5,000 UNIT/1 ML VIAL SUBCUT SCH ×3 (00:31→23:44)
[2022-08-08 05:48] LABS: Calcium 8.8 MG/DL (8.5-10.1); Osmolality,Calculated 286.4 MOS/KG (273-304); Potassium 3.6 MMOL/L (3.5-5.1)
[2022-08-08] MEDS: LEVOTHYROXINE 25 MCG TABLET PO SCH (05:59)
[2022-08-08 06:06] LABS: Free T4 (Free Thyroxine) 0.62 NG/DL (0.76-1.46)
[2022-08-08] MEDS: LINACLOTIDE 145 MCG CAPSULE PO SCH (09:12)
[2022-08-08] MEDS: PRAZOSIN 1 MG CAPSULE PO SCH ×2 (09:13→21:48)
[2022-08-08] MEDS: BISACODYL 5 MG TABLET PO SCH (09:13)
[2022-08-08] MEDS: ASPIRIN EC 81 MG TABLET PO SCH (09:13)
[2022-08-08] MEDS: carBAMazepine 200 MG TABLET PO SCH ×4 (09:13→21:48)
[2022-08-08] MEDS: MELOXICAM 7.5 MG TABLET PO SCH (09:13)
[2022-08-08] MEDS: amLODIPine 10 MG TABLET PO SCH (09:14)
[2022-08-08] MEDS: PANTOPRAZOLE 40 MG TABLET PO SCH (09:14)
[2022-08-08] MEDS: LOSARTAN 50 MG TABLET PO SCH (09:14)
[2022-08-08] MEDS: SEVELAMER CARBONATE 800 MG TABLET PO SCH ×3 (09:14→17:08)
[2022-08-08] MEDS: POLYETHYLENE GLYCOL POWDER 17 GM PACK PO SCH ×2 (09:17→21:46)
[2022-08-08] MEDS: OLANZapine 5 MG TABLET PO SCH ×2 (09:57→21:47)
[2022-08-08] MEDS: NYSTATIN 500,000 UNIT/5 ML UDCUP SWISH/SWAL SCH ×2 (17:09→21:48)
[2022-08-08] MEDS: SIMVASTATIN 20 MG TABLET PO SCH (21:47)
[2022-08-08] MEDS: LATANOPROST 0.005% OPH SOLN 2.5 ML BOTTLE BOTH EYES SCH (21:58)
[2022-08-09] MEDS: hydrALAZINE 20 MG/1 ML VIAL IV PRN (00:55)
[2022-08-09] MEDS: LEVOTHYROXINE 25 MCG TABLET PO SCH (05:18)
[2022-08-09] MEDS: SEVELAMER CARBONATE 800 MG TABLET PO SCH ×3 (09:58→18:01)
[2022-08-09] MEDS: ASPIRIN EC 81 MG TABLET PO SCH (09:58)
[2022-08-09] MEDS: LINACLOTIDE 145 MCG CAPSULE PO SCH (09:58)
[2022-08-09] MEDS: PRAZOSIN 1 MG CAPSULE PO SCH ×2 (09:59→21:14)
[2022-08-09] MEDS: POLYETHYLENE GLYCOL POWDER 17 GM PACK PO SCH ×2 (09:59→21:13)
[2022-08-09] MEDS: BISACODYL 5 MG TABLET PO SCH (09:59)
[2022-08-09] MEDS: MELOXICAM 7.5 MG TABLET PO SCH (09:59)
[2022-08-09] MEDS: NYSTATIN 500,000 UNIT/5 ML UDCUP SWISH/SWAL SCH ×4 (10:00→21:14)
[2022-08-09] MEDS: PANTOPRAZOLE 40 MG TABLET PO SCH (10:00)
[2022-08-09] MEDS: carBAMazepine 200 MG TABLET PO SCH ×4 (10:00→21:14)
[2022-08-09] MEDS: amLODIPine 10 MG TABLET PO SCH (10:00)
[2022-08-09] MEDS: OLANZapine 5 MG TABLET PO SCH ×2 (10:01→21:15)
[2022-08-09] MEDS: LOSARTAN 50 MG TABLET PO SCH (10:06)
[2022-08-09] MEDS: HEPARIN 5,000 UNIT/1 ML VIAL SUBCUT SCH (12:38)
[2022-08-09] MEDS: LATANOPROST 0.005% OPH SOLN 2.5 ML BOTTLE BOTH EYES SCH (21:14)
[2022-08-09] MEDS: SIMVASTATIN 20 MG TABLET PO SCH (21:16)
[2022-08-10] MEDS: HEPARIN 5,000 UNIT/1 ML VIAL SUBCUT SCH ×2 (01:10→13:30)
[2022-08-10] MEDS: hydrALAZINE 20 MG/1 ML VIAL IV PRN (02:20)
[2022-08-10 04:28] LABS: Basophils % 0.5 % (0.0-0.8); Eosinophils # 0.1 10*3/uL (0.0-0.87); Eosinophils % 0.8 % (0.00-10.9); Hematocrit 31.9 VOL% (35.7-47.0); Hemoglobin 9.4 GM/DL (12.0-16.0); Immature Granulocytes % 1.3 %; Immature Granulocytes Absolute 0.08 #; Lymphocytes # 0.3 10*3/uL (1.4-4.0); Lymphocytes % 5.5 % (21.3-54.2); Mean Corpuscular HGB Conc 29.5 GM/DL (32-36); Mean Corpuscular Volume 105.3 FL (87-102); Mean Platelet Volume 9.6 FL (9.6-12.0); Monocytes # 0.7 10*3/uL (0.11-0.8); Monocytes % 11.8 % (1.7-12.7); Neutrophils % 80.1 % (38.7-73.9); Platelet Count 163 T/CUMM (130-400); Red Blood Count 3.03 MC/CUMM (3.8-5.5); Red Cell Distribution Width 14.7 % (9.3-17.3); White Blood Count 6.2 T/CUMM (4-12)
[2022-08-10 04:44] LABS: Calcium 8.9 MG/DL (8.5-10.1); Osmolality,Calculated 281.2 MOS/KG (273-304)
[2022-08-10] MEDS: LEVOTHYROXINE 25 MCG TABLET PO SCH (05:18)
[2022-08-10] MEDS: OLANZapine 5 MG TABLET PO SCH ×2 (10:28→22:39)
[2022-08-10] MEDS: PRAZOSIN 1 MG CAPSULE PO SCH ×2 (10:28→22:39)
[2022-08-10] MEDS: LINACLOTIDE 145 MCG CAPSULE PO SCH (10:28)
[2022-08-10] MEDS: MELOXICAM 7.5 MG TABLET PO SCH (10:29)
[2022-08-10] MEDS: NYSTATIN 500,000 UNIT/5 ML UDCUP SWISH/SWAL SCH ×4 (10:29→22:39)
[2022-08-10] MEDS: carBAMazepine 200 MG TABLET PO SCH ×4 (10:29→22:39)
[2022-08-10] MEDS: SEVELAMER CARBONATE 800 MG TABLET PO SCH ×3 (10:29→17:30)
[2022-08-10] MEDS: LOSARTAN 50 MG TABLET PO SCH (10:29)
[2022-08-10] MEDS: BISACODYL 5 MG TABLET PO SCH (10:30)
[2022-08-10] MEDS: ASPIRIN EC 81 MG TABLET PO SCH (10:30)
[2022-08-10] MEDS: amLODIPine 10 MG TABLET PO SCH (10:30)
[2022-08-10] MEDS: PANTOPRAZOLE 40 MG TABLET PO SCH (10:31)
[2022-08-10] MEDS: POLYETHYLENE GLYCOL POWDER 17 GM PACK PO SCH ×2 (10:31→22:39)
[2022-08-10] MEDS: cefTRIAXone 1,000 MG in SODIUM CHLORIDE 0.9% 100 ML IV SCH (13:57)
[2022-08-10] MEDS: LATANOPROST 0.005% OPH SOLN 2.5 ML BOTTLE BOTH EYES SCH (22:39)
[2022-08-10] MEDS: SIMVASTATIN 20 MG TABLET PO SCH (22:39)
[2022-08-10] MEDS: ZINC OXIDE PASTE 113 GM TUBE TOP SCH (22:39)
[2022-08-11] MEDS: LEVOTHYROXINE 25 MCG TABLET PO SCH (05:21)
[2022-08-11 05:31] LABS: Basophils % 0.3 % (0.0-0.8); Eosinophils % 0.3 % (0.00-10.9); Hematocrit 28.8 VOL% (35.7-47.0); Hemoglobin 8.8 GM/DL (12.0-16.0); Immature Granulocytes % 0.4 %; Immature Granulocytes Absolute 0.04 #; Lymphocytes # 0.8 10*3/uL (1.4-4.0); Mean Corpuscular HGB Conc 30.6 GM/DL (32-36); Mean Corpuscular Volume 100.3 FL (87-102); Mean Platelet Volume 9.8 FL (9.6-12.0); Monocytes # 1.2 10*3/uL (0.11-0.8); Monocytes % 12.8 % (1.7-12.7); Neutrophils % 78.2 % (38.7-73.9); Platelet Count 190 T/CUMM (130-400); Red Blood Count 2.87 MC/CUMM (3.8-5.5); Red Cell Distribution Width 14.6 % (9.3-17.3); White Blood Count 9.6 T/CUMM (4-12)
[2022-08-11 05:58] LABS: Calcium 9.3 MG/DL (8.5-10.1); Osmolality,Calculated 284.5 MOS/KG (273-304); Potassium 3.6 MMOL/L (3.5-5.1)
[2022-08-11] MEDS: LINACLOTIDE 145 MCG CAPSULE PO SCH (07:30)
[2022-08-11] MEDS: SEVELAMER CARBONATE 800 MG TABLET PO SCH ×3 (08:00→17:59)
[2022-08-11] MEDS: ASPIRIN EC 81 MG TABLET PO SCH (09:00)
[2022-08-11] MEDS: OLANZapine 5 MG TABLET PO SCH ×2 (09:00→21:27)
[2022-08-11] MEDS: MELOXICAM 7.5 MG TABLET PO SCH (09:00)
[2022-08-11] MEDS: PANTOPRAZOLE 40 MG TABLET PO SCH (09:00)
[2022-08-11] MEDS: BISACODYL 5 MG TABLET PO SCH (09:00)
[2022-08-11] MEDS: POLYETHYLENE GLYCOL POWDER 17 GM PACK PO SCH ×2 (09:00→21:28)
[2022-08-11] MEDS: NYSTATIN 500,000 UNIT/5 ML UDCUP SWISH/SWAL SCH ×4 (09:00→21:28)
[2022-08-11] MEDS: carBAMazepine 200 MG TABLET PO SCH ×4 (09:00→21:27)
[2022-08-11] MEDS: ZINC OXIDE PASTE 113 GM TUBE TOP SCH ×2 (10:45→21:32)
[2022-08-11] MEDS ORDERED: TUBERCULIN SKIN TEST 0.1 ML SYRINGE INTRADERM ONE (10:46)
[2022-08-11] MEDS: PRAZOSIN 1 MG CAPSULE PO SCH ×2 (10:53→21:27)
[2022-08-11] MEDS: amLODIPine 10 MG TABLET PO SCH (10:54)
[2022-08-11] MEDS: LOSARTAN 50 MG TABLET PO SCH (10:54)
[2022-08-11] MEDS ORDERED: BUPIVACAINE MPF 0.25% 10 ML VIAL ONE (11:20)
[2022-08-11] MEDS ORDERED: LIDOCAINE 1%/EPI INJ 20 ML VIAL ONE (11:20)
[2022-08-11] MEDS ORDERED: LIDOCAINE 2% 5 ML VIAL ONE (11:38)
[2022-08-11] MEDS ORDERED: propofoL 200 MG/20 ML VIAL IV ONE (11:38)
[2022-08-11] MEDS ORDERED: MIDAZOLAM 2 MG/2 ML VIAL ONE (11:39)
[2022-08-11] MEDS ORDERED: fentaNYL 100 MCG/2 ML VIAL ONE (11:39)
[2022-08-11] MEDS ORDERED: SODIUM CHLORIDE 0.9% 250 ML IV SCH (12:00)
[2022-08-11] MEDS ORDERED: LABETALOL 20 MG/4 ML SYRINGE IV ONE (12:03)
[2022-08-11] MEDS: cefTRIAXone 1,000 MG in SODIUM CHLORIDE 0.9% 100 ML IV SCH (14:58)
[2022-08-11] MEDS: SIMVASTATIN 20 MG TABLET PO SCH (21:27)
[2022-08-11] MEDS: LATANOPROST 0.005% OPH SOLN 2.5 ML BOTTLE BOTH EYES SCH (21:33)
[2022-08-12] MEDS: LEVOTHYROXINE 25 MCG TABLET PO SCH (05:18)
[2022-08-12 05:53] LABS: Basophils % 0.4 % (0.0-0.8); Eosinophils # 0.2 10*3/uL (0.0-0.87); Eosinophils % 2.1 % (0.00-10.9); Hematocrit 32.9 VOL% (35.7-47.0); Hemoglobin 10.2 GM/DL (12.0-16.0); Immature Granulocytes % 0.9 %; Immature Granulocytes Absolute 0.08 #; Lymphocytes # 0.9 10*3/uL (1.4-4.0); Lymphocytes % 9.6 % (21.3-54.2); Mean Corpuscular Volume 99.1 FL (87-102); Monocytes % 10.9 % (1.7-12.7); Neutrophils % 76.1 % (38.7-73.9); Platelet Count 178 T/CUMM (130-400); Red Blood Count 3.32 MC/CUMM (3.8-5.5); Red Cell Distribution Width 14.6 % (9.3-17.3)
[2022-08-12 05:56] LABS: Calcium 9.7 MG/DL (8.5-10.1); Osmolality,Calculated 287.7 MOS/KG (273-304); Potassium 4.3 MMOL/L (3.5-5.1)
[2022-08-12] MEDS: LINACLOTIDE 145 MCG CAPSULE PO SCH (10:27)
[2022-08-12] MEDS: ZINC OXIDE PASTE 113 GM TUBE TOP SCH ×2 (10:27→21:51)
[2022-08-12] MEDS: LOSARTAN 50 MG TABLET PO SCH (10:27)
[2022-08-12] MEDS: ASPIRIN EC 81 MG TABLET PO SCH (10:27)
[2022-08-12] MEDS: SEVELAMER CARBONATE 800 MG TABLET PO SCH ×3 (10:27→17:39)
[2022-08-12] MEDS: PRAZOSIN 1 MG CAPSULE PO SCH ×2 (10:28→21:51)
[2022-08-12] MEDS: BISACODYL 5 MG TABLET PO SCH (10:28)
[2022-08-12] MEDS: POLYETHYLENE GLYCOL POWDER 17 GM PACK PO SCH ×2 (10:28→21:49)
[2022-08-12] MEDS: PANTOPRAZOLE 40 MG TABLET PO SCH (10:33)
[2022-08-12] MEDS: MELOXICAM 7.5 MG TABLET PO SCH (10:33)
[2022-08-12] MEDS: amLODIPine 10 MG TABLET PO SCH (10:33)
[2022-08-12] MEDS: NYSTATIN 500,000 UNIT/5 ML UDCUP SWISH/SWAL SCH ×4 (10:33→21:51)
[2022-08-12] MEDS: carBAMazepine 200 MG TABLET PO SCH ×4 (10:34→21:51)
[2022-08-12] MEDS: OLANZapine 5 MG TABLET PO SCH ×2 (10:34→21:50)
[2022-08-12] MEDS: cefTRIAXone 1,000 MG in SODIUM CHLORIDE 0.9% 100 ML IV SCH (16:51)
[2022-08-12] MEDS ORDERED: VANCOMYCIN INJ 1,000 MG in SODIUM CHLORIDE 0.9% 250 ML IV ONE (17:00)
[2022-08-12] MEDS: LATANOPROST 0.005% OPH SOLN 2.5 ML BOTTLE BOTH EYES SCH (21:51)
[2022-08-12] MEDS: SIMVASTATIN 20 MG TABLET PO SCH (21:51)
[2022-08-13] MEDS: LEVOTHYROXINE 25 MCG TABLET PO SCH (05:36)
[2022-08-13] MEDS: POLYETHYLENE GLYCOL POWDER 17 GM PACK PO SCH ×2 (09:19→21:19)
[2022-08-13] MEDS: amLODIPine 10 MG TABLET PO SCH (09:20)
[2022-08-13] MEDS: SEVELAMER CARBONATE 800 MG TABLET PO SCH ×3 (09:20→17:59)
[2022-08-13] MEDS: BISACODYL 5 MG TABLET PO SCH (09:20)
[2022-08-13] MEDS: ASPIRIN EC 81 MG TABLET PO SCH (09:20)
[2022-08-13] MEDS: carBAMazepine 200 MG TABLET PO SCH ×4 (09:20→21:19)
[2022-08-13] MEDS: MELOXICAM 7.5 MG TABLET PO SCH (09:20)
[2022-08-13] MEDS: NYSTATIN 500,000 UNIT/5 ML UDCUP SWISH/SWAL SCH ×4 (09:21→21:19)
[2022-08-13] MEDS: ZINC OXIDE PASTE 113 GM TUBE TOP SCH ×2 (09:21→21:18)
[2022-08-13] MEDS: PRAZOSIN 1 MG CAPSULE PO SCH ×2 (09:21→21:18)
[2022-08-13] MEDS: LOSARTAN 50 MG TABLET PO SCH (09:21)
[2022-08-13] MEDS: LINACLOTIDE 145 MCG CAPSULE PO SCH (09:21)
[2022-08-13] MEDS: OLANZapine 5 MG TABLET PO SCH ×2 (09:21→21:19)
[2022-08-13] MEDS: PANTOPRAZOLE 40 MG TABLET PO SCH (09:24)
[2022-08-13] MEDS: cefTRIAXone 1,000 MG in SODIUM CHLORIDE 0.9% 100 ML IV SCH (13:21)
[2022-08-13] MEDS: LATANOPROST 0.005% OPH SOLN 2.5 ML BOTTLE BOTH EYES SCH (21:19)
[2022-08-13] MEDS: SIMVASTATIN 20 MG TABLET PO SCH (23:01)
[2022-08-14] MEDS: LEVOTHYROXINE 25 MCG TABLET PO SCH (05:34)
[2022-08-14] MEDS ORDERED: VANCOMYCIN INJ 1,000 MG in SODIUM CHLORIDE 0.9% 250 ML IV ONE ×2 (10:30→13:02)
[2022-08-14] MEDS: SEVELAMER CARBONATE 800 MG TABLET PO SCH ×2 (12:34→13:11)
[2022-08-14] MEDS: NYSTATIN 500,000 UNIT/5 ML UDCUP SWISH/SWAL SCH ×2 (12:35→13:11)
[2022-08-14] MEDS: BISACODYL 5 MG TABLET PO SCH (13:10)
[2022-08-14] MEDS: MELOXICAM 7.5 MG TABLET PO SCH (13:11)
[2022-08-14] MEDS: PANTOPRAZOLE 40 MG TABLET PO SCH (13:11)
[2022-08-14] MEDS: carBAMazepine 200 MG TABLET PO SCH ×2 (13:11→13:17)
[2022-08-14] MEDS: OLANZapine 5 MG TABLET PO SCH (13:11)
[2022-08-14] MEDS: PRAZOSIN 1 MG CAPSULE PO SCH (13:11)
[2022-08-14] MEDS: POLYETHYLENE GLYCOL POWDER 17 GM PACK PO SCH (13:11)
[2022-08-14] MEDS: ASPIRIN EC 81 MG TABLET PO SCH (13:11)
[2022-08-14] MEDS: LOSARTAN 50 MG TABLET PO SCH (13:11)
[2022-08-14] MEDS: amLODIPine 10 MG TABLET PO SCH (13:11)
[2022-08-14] MEDS: ZINC OXIDE PASTE 113 GM TUBE TOP SCH (13:13)
[2022-08-14] MEDS: LINACLOTIDE 145 MCG CAPSULE PO SCH (14:06)
[2022-08-14 14:09] VITALS: BP 142/59
== END 2022-08-14 14:59 | disposition home health service (06) | DRG 640 ==
LOC: N.ED 17:35 → SUATTDRO 22:18 → N.EDINP 22:18 → N.TELEN 08-07 08:15
PROVIDERS: ADMIT Internal Medicine; ATTEND Internal Medicine

== ENCOUNTER 2022-09-29 06:33 | Inpatient (IN) ==
[2022-09-29] MEDS ORDERED: HYDROmorphone 1 MG/1 ML SYRINGE IV STA (07:20)
[2022-09-29] MEDS ORDERED: ONDANSETRON 4 MG/2 ML VIAL IV STA (07:20)
[2022-09-29 07:38] LABS: Basophils # 0.1 10*3/uL (0.0-0.2); Basophils % 0.8 % (0.0-0.8); Eosinophils % 0.6 % (0.00-10.9); Hematocrit 36.1 VOL% (35.7-47.0); Hemoglobin 11.3 GM/DL (12.0-16.0); Immature Granulocytes % 0.3 %; Immature Granulocytes Absolute 0.02 #; Lymphocytes # 0.4 10*3/uL (1.4-4.0); Lymphocytes % 5.6 % (21.3-54.2); Mean Corpuscular HGB Conc 31.3 GM/DL (32-36); Mean Corpuscular Volume 100.3 FL (87-102); Mean Platelet Volume 9.1 FL (9.6-12.0); Monocytes # 0.6 10*3/uL (0.11-0.8); Monocytes % 8.9 % (1.7-12.7); Neutrophils % 83.8 % (38.7-73.9); Platelet Count 246 T/CUMM (130-400); Red Cell Distribution Width 17.5 % (9.3-17.3); White Blood Count 7.19 T/CUMM (4-12)
[2022-09-29 07:52] LABS: Bacteria,Urine Occasional /HPF (Few); RBC,Urine <1 /HPF (0-4)
[2022-09-29 07:53] LABS: Bilirubin,Urine Negative (Negative); Blood, Urine Trace mg/dL (Negative); Glucose,Urine (UA) Negative (Negative); Ketones,Urine Negative (Negative); Nitrite,Urine Negative (Negative); Protein,Urine 100 mg/dL (Negative); Urine Appearance Clear (Clear); Urine Color Yellow (Yellow); Urine Urobilinogen 0.2 eU/dL (<2.0); Urine pH 7.5 (4.5-8.0)
[2022-09-29 07:59] LABS: Albumin 3.6 G/DL (3.4-5.0); Bilirubin,Total 0.6 MG/DL (0.20-1.00); Calcium 9.4 MG/DL (8.5-10.1); Osmolality,Calculated 297.1 MOS/KG (273-304); Total Protein 7.5 G/DL (6.4-8.2)
[2022-09-29 08:02] LABS: Potassium 8.4 MMOL/L (3.5-5.1)
[2022-09-29] MEDS ORDERED: SODIUM BICARBONATE 50 MEQ/50 ML VIAL IV STA (08:16)
[2022-09-29] MEDS ORDERED: DEXTROSE 50% 25 GM/50 ML VIAL IV STA (08:16)
[2022-09-29] MEDS ORDERED: INSULIN REGULAR 100 UNIT/ML IV STA (08:16)
[2022-09-29] MEDS ORDERED: CALCIUM CHLORIDE 1,000 MG/10 ML SYRINGE IV STA (08:16)
[2022-09-29] MEDS ORDERED: DEXTROSE 50% 25 GM/50 ML SYRINGE IV STA (08:18)
[2022-09-29] MEDS ORDERED: ONDANSETRON 4 MG/2 ML VIAL IV PRN (09:12)
[2022-09-29] MEDS ORDERED: ALBUTEROL 2.5 MG/3 ML NEB RESP TX PRN (09:12)
[2022-09-29] MEDS ORDERED: SODIUM POLYSTYRENE SULFATE 15 GM/60 ML BOTTLE PO ONE (10:02)
[2022-09-29] MEDS ORDERED: LACTULOSE 20 GM/30 ML UDCUP PO PRN (15:01)
[2022-09-29] MEDS ORDERED: hydrALAZINE 20 MG/1 ML VIAL IV PRN (15:39)
[2022-09-29] MEDS ORDERED: amLODIPine 10 MG TABLET PO ONE (15:40)
[2022-09-29] MEDS: HEPARIN 5,000 UNIT/1 ML VIAL SUBCUT SCH ×2 (17:25→21:13)
[2022-09-29 17:56] LABS: Calcium 9.3 MG/DL (8.5-10.1); Potassium 5.7 MMOL/L (3.5-5.1)
[2022-09-29] MEDS: carBAMazepine 200 MG TABLET PO SCH ×2 (18:10→20:30)
[2022-09-29] MEDS: OLANZapine 5 MG TABLET PO SCH (20:30)
[2022-09-29] MEDS: SIMVASTATIN 20 MG TABLET PO SCH (20:30)
[2022-09-29] MEDS: PRAZOSIN 1 MG CAPSULE PO SCH (20:30)
[2022-09-29] MEDS: SEVELAMER CARBONATE 800 MG TABLET PO SCH (20:30)
[2022-09-29] MEDS: LATANOPROST 0.005% OPH SOLN 2.5 ML BOTTLE BOTH EYES SCH (21:13)
[2022-09-29] MEDS ORDERED: DEXTROSE 50% 25 GM/50 ML SYRINGE IV ONE (21:49)
[2022-09-29] MEDS: DEXTROSE 50% 25 GM/50 ML SYRINGE IV PRN (21:50)
[2022-09-30 04:27] LABS: Basophils % 0.8 % (0.0-0.8); Eosinophils # 0.2 10*3/uL (0.0-0.87); Eosinophils % 3.4 % (0.00-10.9); Hematocrit 31.6 VOL% (35.7-47.0); Hemoglobin 9.6 GM/DL (12.0-16.0); Immature Granulocytes % 0.6 %; Immature Granulocytes Absolute 0.03 #; Lymphocytes # 0.8 10*3/uL (1.4-4.0); Lymphocytes % 16.6 % (21.3-54.2); Mean Corpuscular HGB Conc 30.4 GM/DL (32-36); Mean Corpuscular Volume 102.6 FL (87-102); Mean Platelet Volume 9.3 FL (9.6-12.0); Neutrophils % 58.6 % (38.7-73.9); Platelet Count 210 T/CUMM (130-400); Red Blood Count 3.08 MC/CUMM (3.8-5.5); Red Cell Distribution Width 17.6 % (9.3-17.3); White Blood Count 4.99 T/CUMM (4-12)
[2022-09-30 04:49] LABS: Potassium 5.7 MMOL/L (3.5-5.1)
[2022-09-30 04:50] LABS: Anisocytosis 1+; Eosinophils 8 % (0-10); Lymphocytes 11 % (20-55); Total Cells Counted 100
[2022-09-30 04:51] LABS: Platelet Estimate Normal
[2022-09-30] MEDS: DEXTROSE 50% 25 GM/50 ML SYRINGE IV PRN (05:10)
[2022-09-30] MEDS: SEVELAMER CARBONATE 800 MG TABLET PO SCH ×2 (08:19→15:00)
[2022-09-30] MEDS: carBAMazepine 200 MG TABLET PO SCH ×4 (08:20→20:21)
[2022-09-30] MEDS: OLANZapine 5 MG TABLET PO SCH ×2 (08:20→20:21)
[2022-09-30] MEDS: PRAZOSIN 1 MG CAPSULE PO SCH ×2 (08:21→20:21)
[2022-09-30] MEDS: amLODIPine 10 MG TABLET PO SCH (08:21)
[2022-09-30] MEDS: ACETAMINOPHEN 325 MG TABLET PO PRN (08:21)
[2022-09-30] MEDS: LEVOTHYROXINE 25 MCG TABLET PO SCH (08:21)
[2022-09-30] MEDS: ASPIRIN EC 81 MG TABLET PO SCH (08:21)
[2022-09-30] MEDS: LINACLOTIDE 145 MCG CAPSULE PO SCH (08:22)
[2022-09-30] MEDS: HEPARIN 5,000 UNIT/1 ML VIAL SUBCUT SCH ×3 (09:00→20:30)
[2022-09-30] MEDS: SIMVASTATIN 20 MG TABLET PO SCH (20:21)
[2022-09-30] MEDS: LATANOPROST 0.005% OPH SOLN 2.5 ML BOTTLE BOTH EYES SCH (20:21)
[2022-10-01 06:06] LABS: Calcium 8.9 MG/DL (8.5-10.1); Osmolality,Calculated 274.8 MOS/KG (273-304); Potassium 4.5 MMOL/L (3.5-5.1)
[2022-10-01 06:46] LABS: Basophils % 0.7 % (0.0-0.8); Eosinophils # 0.2 10*3/uL (0.0-0.87); Eosinophils % 4.2 % (0.00-10.9); Hematocrit 31.6 VOL% (35.7-47.0); Hemoglobin 9.7 GM/DL (12.0-16.0); Immature Granulocytes % 0.4 %; Immature Granulocytes Absolute 0.02 #; Lymphocytes # 0.8 10*3/uL (1.4-4.0); Lymphocytes % 18.5 % (21.3-54.2); Mean Corpuscular HGB Conc 30.7 GM/DL (32-36); Mean Corpuscular Volume 101.9 FL (87-102); Mean Platelet Volume 10.4 FL (9.6-12.0); Monocytes # 0.7 10*3/uL (0.11-0.8); Monocytes % 16.1 % (1.7-12.7); Neutrophils % 60.1 % (38.7-73.9); Platelet Count 138 T/CUMM (130-400); Red Cell Distribution Width 17.5 % (9.3-17.3); White Blood Count 4.48 T/CUMM (4-12)
[2022-10-01 07:13] LABS: Eosinophils 5 % (0-10); Lymphocytes 22 % (20-55); Total Cells Counted 100
[2022-10-01 07:14] LABS: Anisocytosis 1+; Hypochromia Slight
[2022-10-01] MEDS: OLANZapine 5 MG TABLET PO SCH ×2 (08:22→20:34)
[2022-10-01] MEDS: SEVELAMER CARBONATE 800 MG TABLET PO SCH ×3 (08:23→18:35)
[2022-10-01] MEDS: LINACLOTIDE 145 MCG CAPSULE PO SCH (08:23)
[2022-10-01] MEDS: ASPIRIN EC 81 MG TABLET PO SCH (08:23)
[2022-10-01] MEDS: amLODIPine 10 MG TABLET PO SCH (08:23)
[2022-10-01] MEDS: PRAZOSIN 1 MG CAPSULE PO SCH ×2 (08:23→20:34)
[2022-10-01] MEDS: LEVOTHYROXINE 25 MCG TABLET PO SCH (08:23)
[2022-10-01] MEDS: carBAMazepine 200 MG TABLET PO SCH ×4 (08:23→22:30)
[2022-10-01] MEDS: HEPARIN 5,000 UNIT/1 ML VIAL SUBCUT SCH ×2 (09:05→20:36)
[2022-10-01] MEDS: ACETAMINOPHEN 325 MG TABLET PO PRN (18:35)
[2022-10-01] MEDS: LATANOPROST 0.005% OPH SOLN 2.5 ML BOTTLE BOTH EYES SCH (20:34)
[2022-10-01] MEDS: SIMVASTATIN 20 MG TABLET PO SCH (20:34)
[2022-10-02 04:52] LABS: Basophils # 0.1 10*3/uL (0.0-0.2); Basophils % 1.3 % (0.0-0.8); Eosinophils # 0.3 10*3/uL (0.0-0.87); Eosinophils % 7.3 % (0.00-10.9); Hematocrit 32.1 VOL% (35.7-47.0); Hemoglobin 9.5 GM/DL (12.0-16.0); Immature Granulocytes % 0.5 %; Immature Granulocytes Absolute 0.02 #; Lymphocytes # 0.8 10*3/uL (1.4-4.0); Mean Corpuscular HGB Conc 29.6 GM/DL (32-36); Mean Corpuscular Volume 106.3 FL (87-102); Mean Platelet Volume 9.5 FL (9.6-12.0); Monocytes # 0.6 10*3/uL (0.11-0.8); Neutrophils % 55.9 % (38.7-73.9); Platelet Count 197 T/CUMM (130-400); Red Blood Count 3.02 MC/CUMM (3.8-5.5); Red Cell Distribution Width 17.2 % (9.3-17.3)
[2022-10-02 05:08] LABS: Calcium 9.3 MG/DL (8.5-10.1); Osmolality,Calculated 278.4 MOS/KG (273-304); Potassium 4.4 MMOL/L (3.5-5.1)
[2022-10-02 07:32] VITALS: BP 186/77
[2022-10-02] MEDS: amLODIPine 10 MG TABLET PO SCH (09:25)
[2022-10-02] MEDS: PRAZOSIN 1 MG CAPSULE PO SCH (09:26)
[2022-10-02] MEDS: carBAMazepine 200 MG TABLET PO SCH ×2 (09:26→14:19)
[2022-10-02] MEDS: OLANZapine 5 MG TABLET PO SCH (09:26)
[2022-10-02] MEDS: LEVOTHYROXINE 25 MCG TABLET PO SCH (09:26)
[2022-10-02] MEDS: ASPIRIN EC 81 MG TABLET PO SCH (09:26)
[2022-10-02] MEDS: LINACLOTIDE 145 MCG CAPSULE PO SCH (09:27)
[2022-10-02] MEDS: SEVELAMER CARBONATE 800 MG TABLET PO SCH ×2 (09:27→14:17)
[2022-10-02] MEDS: HEPARIN 5,000 UNIT/1 ML VIAL SUBCUT SCH (09:35)
[2022-10-02] MEDS ORDERED: TUBERCULIN SKIN TEST 0.1 ML SYRINGE INTRADERM ONE (11:00)
== END 2022-10-02 15:13 | DRG 640 ==
LOC: N.ED 06:33 → SUATTDRO 09:12 → N.EDINP 09:12 → N.ICU 09:35 → N.2E 10-01 18:22
PROVIDERS: ADMIT Family Medicine; ATTEND Internal Medicine